=== PATIENT | female | born 2005 | race Caucasian/White ===

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

== ENCOUNTER 2024-06-27 21:02 | Emergency (ER) | payer BC, SELFPAY ==
[2024-06-27 21:03] VITALS: BP 127/85; PULSE 124; RESP 18; TEMP 36.8; O2SAT 98; BMI 30.8
--- NOTE | 2024-06-27 21:22 | ED.VIS.DENTA ---
HPI History of Present Illness Chief Complaint: Dental Detail of Chief Complaint: Dental pain and facial swelling over the right maxillary region Informant: patient and family Onset/Context/Timing Onset: Today Context: Sudden Onset Quality: Tooth #30, pain Current Severity: Mild Maximum Severity: Moderate Worsened by: Chewing Associated Symptoms Assocated Symptom - Dental: face swelling; Negative for fever, jaw swelling, cold sensitivity or hot sensitivity Narrative Narrative: Patient is a 19-year-old female. She has no history of rheumatic fever, heart murmur, SBE or mitral valve prolapse. She has no allergies to medication. She denies difficulty opening or closing her mouth. She believes she has a sinus infection. She has been blowing her nose for the past week. She was informed since she has not had symptoms for more than 2 weeks does not have a sinus infection. There is swelling and pain over the right maxillary sinus is all likely due to her dental infection. She has an appointment to follow-up with Jade Schroeder. The triage note was reviewed. Prior similar symptoms: Yes Recent Illness/Hospitalization: Yes (Seen for problems with tooth 30. Apparently the tooth was not completely e) PFSH PFS Medical History no medical history no medical history Home Medications ?Medication ?Instructions ?Recorded ?Last Taken ?Type amoxicillin 400 mg/5 mL oral 800 mg (10 mL) PO Q12H 7 days 09/27/17 Unknown Rx suspension hydrocodone-acetaminophen 5-325mg 1 tab PO Q6H PRN PRN Pain 3 days 06/27/24 Unknown Rx 5mg-325mg #10 TABLETS naproxen 500 mg tablet 500 mg PO BID #14 tabs 06/27/24 Unknown Rx penicillin V potassium 500 mg 500 mg PO 4X/DAY #40 tabs 06/27/24 Unknown Rx tablet Allergy/AdvReac Type Severity Reaction Status Date / Time No Known Allergies Allergy Verified 06/27/24 21:06 Family History no significant family his Surgical History no surgical history no surgical history Social History Smoking Status: Never smoker ROS ROS ED Constitutional Constitutional ED: Denies chills, fever(s), subjective, sweats or weight loss Eyes Eyes: Denies blurry vision or change in vision ENT ENT ED: Reports other Details: Facial swelling and tooth pain. No complaint of opening or closing her mouth completely. Cardiovascular Cardiovascular: Denies chest pain or palpitations Respiratory/Chest Respiratory/Chest: Denies cough, dyspnea or dyspnea on exertion Integumentary Denies rash Neurologic Neurologic: Denies headache(s) EXAM Physical Exam Const Vital Signs: 06/27/24 21:03 Temperature 98.3 F Temperature Source Temporal Pulse Rate 124 H Respiratory Rate 18 Blood Pressure 127/85 H Blood Pressure Mean 99 Pulse Ox 98 Oxygen Delivery Method Room Air Positive well nourished and well developed General Appearance ED: well developed and NAD HEENT HEENT Narrative: Patient has a cavity into the dentin tooth #29. Tooth 30 is eroded to the gumline. There is swelling over the right maxillary region. No tenderness with palpation of the right maxillary sinus or left maxillary sinus. Negative for trauma or tenderness Face and Sinus: Negative for sinuses nontender Mouth ED: Yes oral and palatal mucosa normal, Yes lips normal, Yes tongue normal, Yes salivary gland normal, No mouth trauma and Yes oral and palatal mucosa abnormal Mouth: oral and palatal mucosa normal, lips normal, tongue normal, salivary gland normal, No mouth trauma and oral and palatal mucosa abnormal Teeth and Gingiva: caries and teeth discoloration; Negative for gingiva abnormal Eyes PERRL and EOMs intact bilaterally Neck no lymphadenopathy, supple and no JVD Lymph Lymphatic: no lymphadenopathy noted Resp normal respiratory effort, no retractions and clear to auscultation bilaterally Cardio regular rate, regular rhythm, S1 normal heart sound, S2 normal heart sound and no murmurs Neuro oriented x3 and CN's II-XII intact bilaterally Sensorium / Orientation: alert Psych mental status grossly normal Skin no rashes or lesions noted and no wounds MDM MDM MDM Narrative Medical decision making narrative: Patient with dental carry tooth #29 and significant decay of tooth #30. Patient's findings are consistent with apical abscess. She was treated with NSAID, opiate analgesia and antibiotic. She has no contraindication to NSAIDs. In my opinion no laboratory testing is needed. Vital signs are marked for tachycardia. This may be due to pain. Patient received first dose of medication in the ER. Since there is no sensitivity to cold or hot liquids patient not have pulpitis. Discharge Plan Triage Chief Complaint: Dental ED Provider: Wayne Nice Dx/Rx/DC Orders Clinical Impression: Abscess, apical, Dental caries extending into dentine, Sinus tachycardia Instructions: ED Dental Abscess Prescriptions: New hydrocodone-acetaminophen 5-325 mg tablet 1 tab PO Q6H PRN PRN (Reason: Pain) 3 Days Qty: 10 0RF penicillin V potassium 500 mg tablet 500 mg PO 4X/DAY Qty: 40 0RF naproxen 500 mg tablet 500 mg PO BID Qty: 14 0RF No Action amoxicillin 400 MG/5 ML suspension for reconstitution 800 mg PO Q12H 7 Days 0RF Primary Care Provider: Khalida Osorio Referrals: Khalida Osorio MD [Primary Care Provider] - Dentist,Your [STAFF PHYSICIAN] - Keep Cesar appointment Print Language: Pashto Disposition Disposition: Home, Self Care
[2024-06-27] MEDS: HYDROcodone Bitartrate/Apap 5/325 Tablet PO (21:30)
[2024-06-27] MEDS: Penicillin Vk 250 MG Tablet 500 MG PO (21:30)
[2024-06-27] MEDS: Naproxen 500 MG Tablet PO (21:31)
[2024-06-27 21:42] VITALS: BP 117/87; PULSE 110; RESP 16; TEMP 36.7; O2SAT 98
== END 2024-06-27 21:44 | disposition home or self-care (01) ==
LOC: ED 21:43
PROVIDERS: Emergency Provider Emergency Medicine; PCP Pediatrics; Visit Provider Emergency Medicine
DX: K04.7 Periapical abscess without sinus (principal); K02.9 Dental caries, unspecified; R00.0 Tachycardia, unspecified
CPT/HCPCS: 99282

== ENCOUNTER → 2025-03-04 | Outpatient (CLI) | payer BC, SELFPAY ==
[2025-03-04 12:22] LABS: Hematocrit 40.9 % (37-47); Hemoglobin 14.0 g/dL (12.0-15.0); Immature Granulocytes Count 0.010 X10^3/uL (0.0-0.0); Mean Corp Hgb Conc 34.2 g/dL (32-36); Mean Corpuscular Volume 88.9 fL (81-99); Mean Platelet Vol. 10.3 fl (6.2-12.0); NRBC Flagged by Analyzer 0 % (0-5); Platelet Count 254 K/mm3 (150-450); RBC Distribution Width CV 11.8 % (11.6-14.6); RBC Distribution Width SD 37.6 fl (35.1-43.9); Red Blood Count 4.60 M/mm3 (4.2-5.4); White Blood Count 5.2 K/mm3 (4.4-11.0)
[2025-03-04 14:36] LABS: HIV Nonreactive (Nonreactive); Hepatitis B Surface Antigen Nonreactive (Nonreactive); Hepatitis C Antibody Nonreactive (Nonreactive); Syphilis Antibodies Nonreactive (Nonreactive)
[2025-03-05 21:07] LABS: Chlamydia By Nucleic Acid AMP Negative (Negative); Gonococcus By Nucleic Acid AMP Negative (Negative)
== END | disposition home or self-care (01) ==
LOC: BWCLAB 11:15
PROVIDERS: Obstetrics & Gynecology; PCP Pediatrics; Visit Provider Obstetrics & Gynecology
DX: Z34.01 Encounter for supervision of normal first pregnancy, first trimester (principal); Z12.4 Encounter for screening for malignant neoplasm of cervix
CPT/HCPCS: 36415; 85025; 86703; 86762; 86780; 86803; 86850; 86900; 86901; 87077; 87086; 87088; 87186; 87340; 87491; 87591; 88175; G0145

== ENCOUNTER → 2025-04-30 | Outpatient (CLI) | payer BC, SELFPAY | END | disposition home or self-care (01) | LOC: LABSPEC 11:03 | PROVIDERS: PCP Pediatrics; Visit Provider Obstetrics & Gynecology | DX: Z34.90 Encounter for supervision of normal pregnancy, unspecified, unspecified trimester (principal) | CPT/HCPCS: 87086 ==

== ENCOUNTER → 2025-06-21 | Outpatient (CLI) | payer BC, SELFPAY ==
[2025-06-21 14:06] LABS: Hematocrit 34.7 % (37-47); Hemoglobin 11.6 g/dL (12.0-15.0); Immature Granulocytes Count 0.020 X10^3/uL (0.0-0.0); Mean Corp Hgb Conc 33.4 g/dL (32-36); Mean Corpuscular Volume 93.0 fL (81-99); Mean Platelet Vol. 10.2 fl (6.2-12.0); NRBC Flagged by Analyzer 0 % (0-5); Platelet Count 223 K/mm3 (150-450); RBC Distribution Width CV 12.3 % (11.6-14.6); RBC Distribution Width SD 42.4 fl (35.1-43.9); Red Blood Count 3.73 M/mm3 (4.2-5.4); White Blood Count 5.7 K/mm3 (4.4-11.0)
[2025-06-21 15:05] LABS: Glucose Challenge Gest 1H 50g 105 mg/dL (70-140); HIV Nonreactive (Nonreactive); Syphilis Antibodies Nonreactive (Nonreactive)
--- OUTSIDE RECORDS SUMMARY | 2025-06-21 15:28 | XMS RPT_ITS | CCD ---
Author Organization [facility] CliniSywy Care Team Providers Care Legal Billing Coordinator Name Role Phone Jo PALUMBO, José Miguel Primary Care Provider Jo PALUMBO, Dr. Gaxiola Primary Care Provider Jo PALUMBO, Dr. Gaxiola Referring Provider Jade PALUMBO, Dr. Waggoner Attending Provider Dr. Delaney Cordova DO Attending Provider Jo PALUMBO, Dr. Gaxiola Primary Care Physician Dr. Rosaline Hansen MD Attending Physician Dr. Delaney Cordova DO Attending Physician Mary Ellen Toro CNM Attending Physician [phone] YANY GUPTA Attending Unavailable DELANEY JUAREZ Referring Unavailab le JO, JOSÉ MIGUEL M Primary Care Unavailable JO, JOSÉ MIGUEL M Primary Care Unavailable YANY GUPTA Attending Unavailable DELANEY JUAREZ Referring Unavailab zena Osorio MD, Dr. Gaxiola Primary Care Physician Jo PALUMBO, Dr. Gaxiola Referring Provider Dr. Rosaline Hansen MD Attending Physician Dr. Delaney Cordova DO Attending Physician Mary Ellen Toro CNM Attending Physician [phone] Nice Attending Unavailable Jo, José Miguel Primary Care Unavailable Jo, José Miguel Referring Unavailable Jo, José Miguel Primary Care Unavailable Delaney Cordova Attending Unavailabl e Jo, José Miguel Referring Unavailable Mary Ellen Toro Attending Unavailable Jo, José Miguel Primary Care Unavailable Rosaline Hansen Attending Unavailable Jo, José Miguel Primary Care Unavailable Jo, José Miguel Referring Unavailable Jo, José Miguel Referring Unavailable Jo, José Miguel Primary Care Unavailable Vande Delaney Moreno Attending Unavailabl e Rosaline Hansen Attending Unavailable Jo, José Miguel Referring Unavailable Jo, José Miguel Primary Care Unavailable Vande Delaney Moreno Attending Unavailabl e Jo, José Miguel Referring Unavailable Jo, José Miguel Primary Care Unavailable Jo, José Miguel Primary Care Unavailable Vande Delaney Moreno Attending Unavailabl e Jo, José Miguel Primary Care Unavailable Vande VeldeDelaney Attending Unavailabl e Medications Current Medications Medication Drug Class(es) Dates Sig (Normalized) Sig (Original) benzonatate 100 mg oral capsule (1 source) Non-narcotic Antitussive Start: 06-06-2023 End: 06-21-2023 take 1 capsule by mouth every eight hours as needed for cough and cough benzonatate (TESSALON PERLE) 100 mg capsule Indications: Acute cough Take 1 capsule by mouth every 8 hours as needed for cough for up to 15 days. 30 capsule 0 06/06/2023 06/21/2023 Active Comment on above: Take 1 capsule by [facility] every 8 hours as needed for cough for up to 15 days. docosahexaenoic acid 200 mg oral capsule (7 sources) Start: 02-26-2025 Docosahexaenoic Acid ( Dha) 200 mg capsule Active mg PO February 25, 2025 11:00pm Complies with drug therapy ondansetron 4 mg disintegrating oral tablet (4 sources) Serotonin-3 Receptor Antagonist Start: 03-19-2025 take 1 tablet by mouth every six hours as needed for nausea and vomiting Ondansetron 4 mg tablet,disintegratin g Active 4 mg PO EVERY 6 HOURS as needed for nausea and vomiting 04 11March 18, 2025 11:00pm Complies with drug therapy Completed/Discontinued Medications Medication Drug Class(es) Dates Sig (Normalized) Sig (Original) acetaminophen 325 mg / HYDROcodone bitartrate 5 mg oral tablet (7 sources) Opioid Agonist Start: 06-27-2024 End: 02-26-2025 Hydrocodone-Acetami nophen 5-325 mg tablet Discontinued 1 {tbl} PO EVERY 6 HOURS NEEDED as needed for Pain 10 3 0 June 27, 2024 February 26, 2025 9:59am Periapical abscess Dental caries extending into dentin Sinus tachycardia Periapical abscess without sinus Dental caries on smooth surface penetrating into dentin Tachycardia, unspecified amoxicillin 80 mg/ml oral suspension (7 sources) Penicillin-class Antibacterial Start: 09-27-2017 End: 02-26-2025 take 800 mg by mouth every twelve hours Amoxicillin 400 MG/5 ML suspension for reconstitution Discontinued 800 mg PO Q12H 7 September 27, 2017 12:00am February 26, 2025 9:59am ampicillin 500 mg oral capsule (5 sources) Penicillin-class Antibacterial Start: 03-06-2025 End: 03-11-2025 take 1 capsule by mouth every eight hours Ampicillin 500 mg capsule Discontinued 500 mg PO Q8H 15 5 0 March 05, 2025 11:00pm March 09, 2025 11:00pm March 10, 2025 11:07pm naproxen 500 mg oral tablet (7 sources) Nonsteroidal Anti-inflammatory Drug Start: 06-27-2024 End: 02-26-2025 take 1 tablet by mouth twice daily Naproxen 500 mg tablet Discontinued 500 mg PO TWICE A DAY 14 0 June 27, 2024 12:00am February 26, 2025 9:59am penicillin v potassium 500 mg oral tablet (7 sources) Start: 06-27-2024 End: 02-26-2025 take 1 tablet by mouth four times daily Penicillin V Potassium 500 mg tablet Discontinued 500 mg PO 4 TIMES DAILY 40 0 June 27, 2024 12:00am February 26, 2025 9:59am Problems Active Problems Problem Classification Problem Date Documented Date Episodic/Chronic Cardiac dysrhythmias (7 sources) Sinus tachycardia; Translations: [Tachycardia, unspecified] 07-05-2024 Episodic Developmental disorders (20 sources) Learning difficulties; Translations: [Developmental disorder of scholastic skills, unspecified] Onset: 05-28-2025 02-26-2025 Chronic Comment on above: 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 Rpt culture next visit. E coli. Rpt culture negative Other complications of (1 source) Unspecified infection of urinary tract in , unspecified trimester; Translations: [Unspecified infection of urinary tract in , unspecified trimester] Onset: 05-28-2025 Episodic Other lower respiratory disease (1 source) Cough; Translations: [Acute cough] 06-06-2023 Episodic Other and delivery including normal (20 sources) Normal ; Translations: [Encounter for supervision of normal , unspecified, unspecified trimester] Onset: 03-16-2025 02-26-2025 Episodic Comment on above: , JENIFER 09/20/25, BF: Randolph Discuss genetic/rosario ier testing - undecided elected NIPT with Kiio, low risk, gender male, declined carrier testing Residual codes; unclassified (2 sources) ultrasound scan abnormal; Translations: [Pyelectasis of fetus on ultrasound] 05-09-2025 Episodic Comment on above: growth and follow up at 28 weeks Residual codes; unclassified (1 source) 23 weeks gestation of ; Translations: [23 weeks gestation of ] Onset: 05-28-2025 Episodic Residual codes; unclassified (1 source) 19 weeks gestation of ; Translations: [19 weeks gestation of ] Onset: 04-30-2025 Episodic Residual codes; unclassified (1 source) 15 weeks gestation of ; Translations: [15 weeks gestation of ] Onset: 04-03-2025 Episodic Unclassified (1 source) Maternal care for other (suspected) abnormality and damage, genitourinary anomalies, not applicable or unspecified; Translations: [Maternal care for other (suspected) abnormality and damage, genitourinary anomalies, not applicable or unspecified] Onset: 05-28-2025 Past or Other Problems Problem Classification Problem Date Documented Da te Episodic/Chronic Disorders of teeth and jaw (15 sources) Periapical abscess; Translations: [Periapical abscess without sinus] Onset: 03-05-2025 07-05-2024 Episodic Results Test Name Value Interpretation Reference Range Facility Laboratory - Chemistry and C hemistry - challengeOrdered By: Delaney Moreno on 05-28-2025 Glucose Ql (U) Negative [facility] - UrinalysisOrder ed By: Delaney Moreno on 05-28-2025 Protein Ql (U) Negative [facility] Liability Claims Adjuster Office Visit Reporton 05-28-2025 Liability Claims Adjuster Office Visit Report [facility] [address], [address] [place] [address] OFFICE VISIT Date of Service: 05/28/25 MR#: [id number] Acct: [id number] Name: DANIEL HODGSON Rep #: [id number] : 2005 Provider: Dr. Delaney Rosa DO Age/Sex: 20/F [place] [facility] [place]: Signed Intake Vital Signs 03/04/25 10:34 04/30/25 09:41 05/28/25 11:26 05/28/25 11:27 Height 5 ft 1 in 5 ft 1 in 5 ft 1 in 5 ft 1 in Weight: 141 lb 9 oz BMI 26.7 BP 117/75 Intake Visit Reasons: 23w 4d ob Site Promotion Agent Required: No Is patient in pain?: No Allergies No Known Allergies Allergy (Verified 05/28/25 11:26) Medications ???Medication ???Instructions ???Recorded ???Confirmed ???Type docosahexaenoic acid 200 mg mg PO 02/26/25 05/28/25 History capsule ( DHA) ondansetron 4 mg disintegrating 4 mg PO Q6H PRN nausea and 5 05/28/25 Rx tablet vomiting #30 tabs Last Menstrual Period: 12/14/24 Zika: Zika virus screening: Negative : No PFSH PFSH Family History Sister Queta's disease Thyroid disorder Grandfather Diabetes Heart disease Grandmother Diabetes Congestive heart failure Grandfather Diabetes Grandmother Lung cancer Liver cancer Brain cancer Aunt Migraines Mother Asthma Migraines Aunt Multiple sclerosis Social History adopted: No household members: family and other details: Mom Dad, Grandfather, Sister number of children: 0 current occupational status: unemployed current occupational exposures/hazards: No pets and animals: Yes pets and animals: cat(s) and dog(s) history of recent travel: No sexually active: Yes Smoking Status: Never smoker second hand exposure: Yes (BF's family smokes) alcohol intake: never substance use type: does not use well-balanced diet: about half the time caffeine: No eating out: 1-3 times/week during the past year weight has: remained stable what type of physical activity do you participate in: none mey/buddhist: None seatbelt use: always do you feel safe at home: Yes additional social history: BF: Trevous - unemployed History 0 Elective abortions 0 Hx Para Spontaneous abortions 0 Hx # Term Pregnancies Ectopic pregnancies Hx # Pregnancies Multiple births # of living children HPI 23w 4d ob Details: DANIEL HODGSON is a 20 year old who presents for routine OB visit. OB Visit JENIFER Calculator Estimated Delivery Date Method Current WG Current Estimate 09/20/25 LMP (Certain) 23w 4d Other Estimates 09/17/25 Ultrasound #1 24w 0d Expected Delivery Route/Plan Labor Preferences- CB/BF classes: discussed - labor support person: [] labor intervention preferences: [] pain management options preferred: [] cut cord/dad catch: [] : [] PP control planned: [] discussed possible routes of delivery and associated risks: [] special requests: [] Specific Issue/Plans Covid status: unvaccinated Flu vaccine: unvaccinated Tdap vaccine: [] Rhogam: [] LARC form signed: [] Problem list reviewed and updated with the most current plan of care details and appropriate orders placed. Relevant counseling for the gestational age provided. Continue routine care and follow up unless otherwise noted in visit notes/problem list details Initial Weight: 139 lb Date -???-???-???-???-?? ?-???-???-???-???-? ??-???-???- EGA Weight BP Urine Prot -???-???-???-???-?? ?-???-???-???-???-? ??-???-???- Glucose FHR FuHt Pres Dilation -???-???-???-???-?? ?-???-???-???-???-? ??-???-???- Effaced St Visit Note 03/04/25 -???-???-???-???-?? ?-???-???-???-???-? ??-???-???- 11w 3d 139 lb (+0 oz) 120/80 -???-???-???-???-?? ?-???-???-???-???-? ??-???-???- -???-???-???-???-?? ?-???-???-???-???-? ??-???-???- JV- CRL cons itent with LMP, [facility]. desires NIPT without carrier testing. 04/03/25 -???-???-???-???-?? ?-???-???-???-???-? ??-???-???- 15w 5d 142 lb 9 oz (+3 lb 9 oz) 104/55 -???-???-???-???-?? ?-???-???-???-???-? ??-???-???- 144 -???-???-???-???-?? ?-???-???-???-???-? ??-???-???- JV- low risk s NIPT bo, Gareth) JV- low risks NIPT bo, Gareth) Her mom here with her is concerned about her boyfriend's parents smoking weed around her. we discussed keeping a safe distance in a ventilated area. 04/30/25 -???-???-???-???-?? ?-???-???-???-???-? ??-???-???- 19w 4d 141 lb 7 oz (+2 lb 7 oz) 118/76 -???-???-???-???-?? ?-???-???-???-???-? ??-???-???- 145 -???-???-???-???-?? ?-???-???-???-???-? ??-???-???- KW- no vb/lo f. some flutters. has anatomy US scheduled. 05/28/25 -???-???-???-???-?? ?-???-???-???- (more content not included)... Normal [facility] Urine Cultureon 05-01-2025 URC Culture exhibits no growth. Normal [facility] Comment on above: Performed By: #### M 100.2200 #### [facility] [address] [place], [place], [address] Urine cultureOrdered By: Zabrina Moreno on 05-01-2025 Bacteria identified Cx Nom (U) Culture exhibits no growth. [facility] Liability Claims Adjuster Office Visit Reporton 04-30-2025 Liability Claims Adjuster Office Visit Report [facility] [address], [address] [place] [address] OFFICE VISIT Date of Service: 04/30/25 MR#: [id number] Acct: [id number] Name: DANIEL HODGSON Rep #: [id number] : 2005 Provider: CAROLE Nixon ams Age/Sex: 20/F [place] [facility] [place] Status: Signed Intake Vital Signs 06/27/24 21:03 04/03/25 16:01 04/30/25 09:41 Height 5 ft 1 in 5 ft 1 in 5 ft 1 in Weight: 141 lb 7 oz BMI 26.7 BP 118/76 Intake Visit Reasons: 19wk OB Chief Complaint: 19wk OB Site Promotion Agent Required: No Is patient in pain?: No Allergies No Known Allergies Allergy (Verified 04/30/25 09:38) Medications ???Medication ???Instructions ???Recorded ???Confirmed ???Type docosahexaenoic acid 200 mg mg PO 02/26/25 04/30/25 History capsule ( DHA) ondansetron 4 mg disintegrating 4 mg PO Q6H PRN nausea and 5 04/30/25 Rx tablet vomiting #30 tabs Last Menstrual Period: 12/14/24 : No PFSH PFSH Family History Sister Queta's disease Thyroid disorder Grandfather Diabetes Heart disease Grandmother Diabetes Congestive heart failure Grandfather Diabetes Grandmother Lung cancer Liver cancer Brain cancer Aunt Migraines Mother Asthma Migraines Aunt Multiple sclerosis Social History adopted: No household members: family and other details: Mom Dad, Grandfather, Sister number of children: 0 current occupational status: unemployed current occupational exposures/hazards: No pets and animals: Yes pets and animals: cat(s) and dog(s) history of recent travel: No sexually active: Yes Smoking Status: Never smoker second hand exposure: Yes (BF's family smokes) alcohol intake: never substance use type: does not use well-balanced diet: about half the time caffeine: No eating out: 1-3 times/week during the past year weight has: remained stable what type of physical activity do you participate in: none mey/buddhist: None seatbelt use: always do you feel safe at home: Yes additional social history: BF: Trevous - unemployed History 0 Elective abortions 0 Hx Para Spontaneous abortions 0 Hx # Term Pregnancies Ectopic pregnancies Hx # Pregnancies Multiple births # of living children HPI 19wk OB Details: DANIEL HODGSON is a 20 year old who presents for routine OB visit. OB Visit JENIFER Calculator Estimated Delivery Date Method Current WG Current Estimate 09/20/25 LMP (Certain) 19w 4d Other Estimates 09/17/25 Ultrasound #1 20w 0d Expected Delivery Route/Plan Labor Preferences- CB/BF classes: discussed - labor support person: [] labor intervention preferences: [] pain management options preferred: [] cut cord/dad catch: [] : [] PP control planned: [] discussed possible routes of delivery and associated risks: [] special requests: [] Specific Issue/Plans Covid status: unvaccinated Flu vaccine: unvaccinated Tdap vaccine: [] Rhogam: [] LARC form signed: [] Problem list reviewed and updated with the most current plan of care details and appropriate orders placed. Relevant counseling for the gestational age provided. Continue routine care and follow up unless otherwise noted in visit notes/problem list details Initial Weight: 139 lb Date -???-???-???-???-?? ?-???-???-???-???-? ??-???-???- EGA Weight BP Urine Prot -???-???-???-???-?? ?-???-???-???-???-? ??-???-???- Glucose FHR FuHt Pres Dilation -???-???-???-???-?? ?-???-???-???-???-? ??-???-???- Effaced St Visit Note 03/04/25 -???-???-???-???-?? ?-???-???-???-???-? ??-???-???- 11w 3d 139 lb (+0 oz) 120/80 -???-???-???-???-?? ?-???-???-???-???-? ??-???-???- -???-???-???-???-?? ?-???-???-???-???-? ??-???-???- JV- CRL cons itent with LMP, had early us with care center. desires NIPT without carrier testing. 04/03/25 -???-???-???-???-?? ?-???-???-???-???-? ??-???-???- 15w 5d 142 lb 9 oz (+3 lb 9 oz) 104/55 -???-???-???-???-?? ?-???-???-???-???-? ??-???-???- 144 -???-???-???-???-?? ?-???-???-???-???-? ??-???-???- JV- low risk s NIPT boy, Gareth) JV- low risks NIPT boy, Gareth) Her mom here with her is concerned about her boyfriend's parents smoking weed around her. we discussed keeping a safe distance in a ventilated area. 04/30/25 -???-???-???-???-?? ?-???-???-???-???-? ??-???-???- 19w 4d 141 lb 7 oz (+2 lb 7 oz) 118/76 -???-???-???-???-?? ?-???-???-???-???-? ??-???-???- 145 -???-???-???-???-?? ?-???-???-???-???-? ??-???-???- KW- no vb/lo f. some flutters. has anatomy US scheduled. ACOG First Trimester First Trimester: Desire for , Alcohol, Tobacco Cessation, Illicit/Rec (more content not included)... Normal [facility] Urine cultureOrdered By: Zabrina Moreno on 04-30-2025 Bacteria identified Cx Nom (U) Culture exhibits no growth. [facility] Liability Claims Adjuster Office Visit Reporton 04-03-2025 Liability Claims Adjuster Office Visit Report [facility], [address] [place] [address] OFFICE VISIT Date of Service: 04/03/25 MR#: [id number] Acct: [id number] Name: DANIEL HODGSON Rep #: [id number] : 2005 Provider: Dr. Delaney Rosa DO Age/Sex: 20/F Location: [facility] [place] Status: Signed Intake Vital Signs 06/27/24 21:03 03/04/25 10:34 04/03/25 16:01 Height 5 ft 1 in 5 ft 1 in 5 ft 1 in Weight: 142 lb 9 oz BMI 26.9 BP 104/55 L Intake Visit Reasons: 15wk OB Site Promotion Agent Required: No Is patient in pain?: No Allergies No Known Allergies Allergy (Verified 04/03/25 15:59) Medications ???Medication ???Instructions ???Recorded ???Confirmed ???Type docosahexaenoic acid 200 mg mg PO 02/26/25 04/03/25 History capsule ( DHA) ondansetron 4 mg disintegrating 4 mg PO Q6H PRN nausea and 5 04/03/25 Rx tablet vomiting #30 tabs Last Menstrual Period: 12/14/24 Zika: Zika virus screening: Negative : No PFSH PFSH Family History Sister Queta's disease Thyroid disorder Grandfather Diabetes Heart disease Grandmother Diabetes Congestive heart failure Grandfather Diabetes Grandmother Lung cancer Liver cancer Brain cancer Aunt Migraines Mother Asthma Migraines Aunt Multiple sclerosis Social History adopted: No household members: family and other details: Mom Dad, Grandfather, Sister number of children: 0 current occupational status: unemployed current occupational exposures/hazards: No pets and animals: Yes pets and animals: cat(s) and dog(s) history of recent travel: No sexually active: Yes Smoking Status: Never smoker second hand exposure: Yes (BF's family smokes) alcohol intake: never substance use type: does not use well-balanced diet: about half the time caffeine: No eating out: 1-3 times/week during the past year weight has: remained stable what type of physical activity do you participate in: none mey/buddhist: None seatbelt use: always do you feel safe at home: Yes additional social history: BF: Trevous - unemployed History 0 Elective abortions 0 Hx Para Spontaneous abortions 0 Hx # Term Pregnancies Ectopic pregnancies Hx # Pregnancies Multiple births # of living children HPI 15wk OB Details: DANIEL HODGSON is a 20 year old who presents for routine OB visit. OB Visit JENIFER Calculator Estimated Delivery Date Method Current WG Current Estimate 09/20/25 LMP (Certain) 15w 5d Other Estimates 09/17/25 Ultrasound #1 16w 1d Expected Delivery Route/Plan Labor Preferences- CB/BF classes: discussed - labor support person: [] labor intervention preferences: [] pain management options preferred: [] cut cord/dad catch: [] : [] PP control planned: [] discussed possible routes of delivery and associated risks: [] special requests: [] Specific Issue/Plans Covid status: unvaccinated Flu vaccine: unvaccinated Tdap vaccine: [] Rhogam: [] LARC form signed: [] Problem list reviewed and updated with the most current plan of care details and appropriate orders placed. Relevant counseling for the gestational age provided. Continue routine care and follow up unless otherwise noted in visit notes/problem list details Initial Weight: 139 lb Date -???-???-???-???-?? ?-???-???-???-???-? ??-???-???- EGA Weight BP Urine Prot -???-???-???-???-?? ?-???-???-???-???-? ??-???-???- Glucose FHR FuHt Pres Dilation -???-???-???-???-?? ?-???-???-???-???-? ??-???-???- Effaced St Visit Note 03/04/25 -???-???-???-???-?? ?-???-???-???-???-? ??-???-???- 11w 3d 139 lb (+0 oz) 120/80 -???-???-???-???-?? ?-???-???-???-???-? ??-???-???- -???-???-???-???-?? ?-???-???-???-???-? ??-???-???- JV- CRL cons itent with LMP, [facility]. desires NIPT without carrier testing. 04/03/25 -???-???-???-???-?? ?-???-???-???-???-? ??-???-???- 15w 5d 142 lb 9 oz (+3 lb 9 oz) 104/55 -???-???-???-???-?? ?-???-???-???-???-? ??-???-???- 144 -???-???-???-???-?? ?-???-???-???-???-? ??-???-???- JV- low risk s NIPT boy, Gareth) JV- low risks NIPT boy, Gareth) Her mom here with her is concerned about her boyfriend's parents smoking weed around her. we discussed keeping a safe distance in a ventilated area. ACOG First Trimester First Trimester: Desire for , Alcohol, Tobacco Cessation, Illicit/Recreationa l Drug/Substance Use, Intimate Partner Violence, Barriers to care, Unstable Housing, Communication Barriers, Environmental/Work Hazards, Anticipated Course of Care, Toxoplasmosis Precations, Use of Any medications, Sexual (more content not included)... Normal [facility] PAP I-G w/rfx hrHPV-Aptimaon 03-07-2025 ADEQ Comment Normal . [facility] Comment on above: Order Comment: Speci men Comment: [id number] Specimen Comment: No. of containers..01 ThinPrep Vial Result Comment: Sati sfactory for evaluation. No endocervical component is identified. An endocervical component is not commonly seen in the patient. Performed By: #### L 7000.1800, L7400.0353 #### [facility] [address] [place], [address] COMM . Normal . [facility] Comment on above: Order Comment: Speci men Comment: [id number] Specimen Comment: No. of containers..01 ThinPrep Vial Performed By: #### L 7000.1800, L7400.0353 #### [facility] [address] [place], [address] COMMENT Comment Normal . [facility] Comment on above: Order Comment: Speci men Comment: [id number] Specimen Comment: No. of containers..01 ThinPrep Vial Result Comment: This liquid based ThinPrep(R) pap test was screened with the use of an image guided system. Performed By: #### L 7000.1800, L7400.0353 #### [facility] [address] [place], [address] DIAG Comment Normal . [facility] Comment on above: Order Comment: Speci men Comment: [id number] Specimen Comment: No. of containers..01 ThinPrep Vial Result Comment: NEGA TIVE FOR INTRAEPITHELIAL LESION OR MALIGNANCY. Performed By: #### L 7000.1800, L7400.0353 #### [facility] [address] [place], [address] HPV RFLX Comment Normal . [facility] Comment on above: Order Comment: Speci men Comment: [id number] Specimen Comment: No. of containers..01 ThinPrep Vial Result Comment: The HPV DNA reflex criteria were not met with this specimen result therefore, no HPV testing was performed. Performed at: [facility] [employer] [address] [place] [address], [place], [place] [id number] Latrine Cleaner: Mynor Steele MD, Phone: [phone] Performed at: [address] [id number] Latrine Cleaner: Milagros Roque MD, Phone: [phone] Performed By: #### L 7000.1800, L7400.0353 #### [facility] [address] [place], [place], [id number] PAPSMR Comment Normal . [facility] Comment on above: Order Comment: Speci men Comment: [id number] Specimen Comment: No. of containers..01 ThinPrep Vial Result Comment: The Pap smear is a screening test designed to aid in the detection of premalignant and malignant conditions of the uterine cervix. It is not a diagnostic procedure and should not be used as the sole means of detecting cervical cancer. Both false-positive and false-negative reports do occur. Performed By: #### L 7000.1800, L7400.0353 #### [facility] [address] [place], [place], [id number] PERFORM Comment Normal . [facility] Comment on above: Order Comment: Speci men Comment: [id number] Specimen Comment: No. of containers..01 ThinPrep Vial Result Comment: Kate Roldan, Imaging Analyst (ASCP) Performed By: #### L 7000.1800, L7400.0353 #### [facility] [address] [place], [place], [id number] Urine Cultureon 03-06-2025 URC Escherichia coli [place] Count >100,000 Escherichia coli: REACTION Ampicillin Islt CLEMENCIA 8 Ampicillin+Sulbac Islt CLEMENCIA <=2 S Cefepime Islt CLEMENCIA <=0.12 S cefTRIAXone Islt CLEMENCIA <=0.25 S Ciprofloxacin Islt CLEMENCIA <=0.06 S B-Lactamase Extended Susc Islt NEG Gentamicin Islt CLEMENCIA <=1 S levoFLOXacin Islt CLEMENCIA <=0.12 S Meropenem Islt CLEMENCIA <=0.25 S Nitrofurantoin Islt CLEMENCIA <=16 S Pip+Tazo Islt CLEMENCIA <=4 S TMP SMX Islt CLEMENCIA <=20 S Normal [facility] Comment on above: Performed By: #### M 100.2200, L509.4006, L3890.6006, L3890.6102, L100.0100, BTS, L509.8002, L3890.6301 ####[facility] [address] [place], [address] Chlamydia/GC RICK aptimaon CHLAMY,NUC ACID Negative Normal Negative [facility] Comment on above: Performed By: #### L 7000.1800, L7400.0353 #### [facility] [address] [place], [place], [id number] GC BY NUC ACID Negative Normal Negative [facility] Comment on above: Result Comment: Perf ormed at: =G - [facility] [address] [id number] Latrine Cleaner: Milagros Roque MD, Phone: [phone] Performed By: #### L 7000.1800, L7400.0353 #### [facility] [address] [place], [place], [id number] Absolute lymphocyte countOrd ered By: Rosaline Hansen on 03-04-2025 Lymphocytes Auto (Unsp spec) [#/Vol] 1.31 10*3/uL 0.83-4.51 [facility] Absolute neutrophil countOrd ered By: Rosaline Hansen on 03-04-2025 Neutrophils (Bld) [#/Vol] 3.6 10*3/uL 2.0-7.7 [facility] Automated lymphocyte count a s percentage of total leukocytesOrdered By: Rosaline Hansen on 03-04-2025 Lymphocytes/100 WBC Auto (Unsp spec) 25.2 % 19-41 [facility] Basophil percentageOrdered B y: Rosaline Hansen on 03-04-2025 Basophils/100 WBC (Bld) 0.2 % 0-1 [facility] CBC W/Diff, Automatedon 02-06 Absolute Lymph 1.31 X10 3/uL Normal 0.83-4.51 [facility] Comment on above: Performed By: #### M 100.2200, L509.4006, L3890.6006, L3890.6102, L100.0100, BTS, L509.8002, L3890.6301 #### [facility] [address] [place], [address] Absolute Neut 3.6 X10 3/uL Normal 2.0-7.7 [facility] Comment on above: Performed By: #### M 100.2200, L509.4006, L3890.6006, L3890.6102, L100.0100, BTS, L509.8002, L3890.6301 #### [facility] [address] [place], [address] Basophils/100 WBC (Bld) 0.2 % Normal 0-1 [facility] Comment on above: Performed By: #### M 100.2200, L509.4006, L3890.6006, L3890.6102, L100.0100, BTS, L509.8002, L3890.6301 #### [facility] [address] [place], [address] Eosinophils/100 WBC (Bld) 1.0 % Normal 0-5 [facility] Comment on above: Performed By: #### M 100.2200, L509.4006, L3890.6006, L3890.6102, L100.0100, BTS, L509.8002, L3890.6301 #### [facility] [address] [place], [address] Erythrocyte distribution width (RBC) [Ratio] 11.8 % Normal 11.6-14.6 [facility] Comment on above: Performed By: #### M 100.2200, L509.4006, L3890.6006, L3890.6102, L100.0100, BTS, L509.8002, L3890.6301 #### [facility] [address] [place], [address] Hematocrit (Bld) [Volume fraction] 40.9 % Normal 37-47 [facility] Comment on above: Performed By: #### M 100.2200, L509.4006, L3890.6006, L3890.6102, L100.0100, BTS, L509.8002, L3890.6301 #### [facility] [address] [place], [address] Hemoglobin (Bld) [Mass/Vol] 14.0 g/dL Normal 12.0-15.0 [facility] Comment on above: Performed By: #### M 100.2200, L509.4006, L3890.6006, L3890.6102, L100.0100, BTS, L509.8002, L3890.6301 #### [facility] [address] [place], [address] IG% 0.200 Normal 0.0-0.9 [facility] Comment on above: Result Comment: IG% - Immature Granulocytes (promyelocytes, myelocytes and metamyelocytes) > 1% indicates that a LEFT SHIFT is Present. Performed By: #### M 100.2200, L509.4006, L3890.6006, L3890.6102, L100.0100, BTS, L509.8002, L3890.6301 #### [facility] [address] [place], [address] Lymphocytes/100 WBC (Bld) 25.2 % Normal 19-41 [facility] Comment on above: Performed By: #### M 100.2200, L509.4006, L3890.6006, L3890.6102, L100.0100, BTS, L509.8002, L3890.6301 #### [facility] [address] [place], [address] MCH (RBC) [Entitic mass] 30.4 pg Normal 27.0-32.0 [facility] Comment on above: Performed By: #### M 100.2200, L509.4006, L3890.6006, L3890.6102, L100.0100, BTS, L509.8002, L3890.6301 #### [facility] [address] [place], [address] MCHC (RBC) [Mass/Vol] 34.2 g/dL Normal 32-36 [facility] Comment on above: Performed By: #### M 100.2200, L509.4006, L3890.6006, L3890.6102, L100.0100, BTS, L509.8002, L3890.6301 #### [facility] [address] [place], [address] MCV (RBC) [Entitic vol] 88.9 fL Normal 81-99 [facility] Comment on above: Performed By: #### M 100.2200, L509.4006, L3890.6006, L3890.6102, L100.0100, BTS, L509.8002, L3890.6301 #### [facility] [address] [place], [address] Monocytes/100 WBC (Bld) 4.8 % Normal 0-10 [facility] Comment on above: Performed By: #### M 100.2200, L509.4006, L3890.6006, L3890.6102, L100.0100, BTS, L509.8002, L3890.6301 #### [facility] [address] [place], [address] Neutrophils/100 WBC (Bld) 68.6 % Normal 47-70 [facility] Comment on above: Performed By: #### M 100.2200, L509.4006, L3890.6006, L3890.6102, L100.0100, BTS, L509.8002, L3890.6301 #### [facility] [address] [place], [address] Nucleated RBC (Bld) [#/Vol] 0 10*3/uL Normal 0-5 [facility] Comment on above: Performed By: #### M 100.2200, L509.4006, L3890.6006, L3890.6102, L100.0100, BTS, L509.8002, L3890.6301 #### [facility] [address] [place], [address] Platelet mean volume (Bld) [Entitic vol] 10.3 fL Normal 6.2-12.0 [facility] Comment on above: Performed By: #### M 100.2200, L509.4006, L3890.6006, L3890.6102, L100.0100, BTS, L509.8002, L3890.6301 #### [facility] [address] [place], [address] Platelets (Bld) [#/Vol] 254 10*3/uL Normal 150-450 [facility] Comment on above: Performed By: #### M 100.2200, L509.4006, L3890.6006, L3890.6102, L100.0100, BTS, L509.8002, L3890.6301 #### [facility] [address] [place], [address] RBC (Bld) [#/Vol] 4.60 10*6/uL Normal 4.2-5.4 [facility] Comment on above: Performed By: #### M 100.2200, L509.4006, L3890.6006, L3890.6102, L100.0100, BTS, L509.8002, L3890.6301 #### [facility] [address] [place], [address] RDW SD 37.6 fl Normal 35.1-43.9 [facility] Comment on above: Performed By: #### M 100.2200, L509.4006, L3890.6006, L3890.6102, L100.0100, BTS, L509.8002, L3890.6301 #### [facility] [address] [place], [address] WBC (Bld) [#/Vol] 5.2 10*3/uL Normal 4.4-11.0 [facility] Comment on above: Performed By: #### M 100.2200, L509.4006, L3890.6006, L3890.6102, L100.0100, BTS, L509.8002, L3890.6301 #### [facility] [address] [place], [address] Cervical or vagninal specime n microscopic examination by cytology stain (reported asOrdered By: Rosaline Hansen on 03-04-2025 Cytology report Cyto stain Doc (Cvx/Vag) Comment . [facility] Comment on above: The Pap smear is a s creening test designed to aid in thedetection of premalignant and malignant conditions of theuterine cervix. It is not a diagnostic procedure andshould not be used as the sole means of detecting cervicalcancer. Both false-positive and false-negative reports dooccur. Chlamydia trachomatis rRNA d etection by probe and target amplification methodOrdered By: Rosaline Hansen on 03-04-2025 C. trachomatis rRNA RICK+probe Ql (Unsp spec) Negative Negative [facility] Eosinophil percentageOrdered By: Rosaline Hansen on 03-04-2025 Eosinophils/100 WBC (Bld) 1.0 % 0-5 [facility] Erythrocyte distribution wid th ratioOrdered By: Rosaline Hansen on 03-04-2025 Erythrocyte distribution width (RBC) [Ratio] 11.8 % 11.6-14.6 [facility] Erythrocyte distribution wid th standard deviationOrdered By: Rosaline Hansen on 03-04-2025 Erythrocyte distribution width (RBC) [Ratio] 37.6 fl 35.1-43.9 [facility] HIVon 03-04-2025 HIV Non-Reactive Normal Nonreactive [facility] Comment on above: Result Comment: Non- Reactive Reactive Repeatedly reactive samples must be confirmed according to CDC recommended confirmatory algorithms. The subresults for either HIVAG or AHIV can be used as an aid in the selection of the confirmation algorithm for reactive samples. Send out specimens with Reactive results to [facility] for confirmation. Order the HIV antibody detection and differentiation: lc#[id number] Performed By: #### M 100.2200, L509.4006, L3890.6006, L3890.6102, L100.0100, BTS, L509.8002, L3890.6301 ####[facility] [address] [place], [place], [address] Hematocrit Auto (Bld) [Volum e fraction]Ordered By: Rosaline Hansen on 03-04-2025 Hematocrit (Bld) [Volume fraction] 40.9 % 37-47 [facility] Hemoglobin measurementOrdere d By: Rosaline Davidsonhima on 03-04-2025 Hemoglobin (Bld) [Mass/Vol] 14.0 g/dL 12.0-15.0 [facility] Hepatitis C Antibodyon 03-04 Hepatitis C Ab Non-Reactive Normal Nonreactive [facility] Comment on above: Result Comment: Reac tive: Presumptive evidence of antibodies to HCV. Follow CDC recommendations for supplemental testing. Non-Reactive: Antibodies to HCV were not detected; does not exclude the possibility of exposure to HCV Reactive Results are presumptive evidence of antibodies to HCV. Follow CDC recommendations for supplemental testing. Order confirmation testing: HCV Quant by PCR testing - HCVPCR lc#[id number] Non Reactive: < 0.8 Equivocal: >/= 0.8 to < 1.0 Reactive: >/= 1.0 The CDC requires that a reactive/equivocal HCV antibody result be sent out for confirmation. HCV Quant by PCR testing. Performed By: #### M 100.2200, L509.4006, L3890.6006, L3890.6102, L100.0100, BTS, L509.8002, L3890.6301 ####[facility] [address] [place], [place], [id number] Immature granulocytes/100 WB C Auto (Bld)Ordered By: Rosaline Hansen on 03-04-2025 Immature granulocytes/100 WBC (Bld) 0.200 % 0.0-0.9 [facility] Comment on above: IG% - Immature Granu locytes (promyelocytes, myelocytes and metamyelocytes) > 1% indicates that a LEFT SHIFT is Present. L3890.6102on 03-04-2025 HEP B Surf Ag Non-Reactive Normal Nonreactive [facility] Comment on above: Result Comment: Reac tive: Presumptive evidence of HBV. Repeatedly reactive samples must be confirmed using a neutralization test ([employer] HBsAg Confirmatory Test) Non-Reactive: HBsAg not detected; does not exclude the possibility of exposure to HBV Performed By: #### M 100.2200, L509.4006, L3890.6006, L3890.6102, L100.0100, BTS, L509.8002, L3890.6301 ####[facility] [address] [place], [address] L509.4006on 03-04-2025 Rubella IgG REAC Normal Nonreactive [facility] Comment on above: Result Comment: Anti body Result: Interpretation Non-Reactive: Non-Immune Reactive: Immune The following results were obtained with the [employer] Rubella IgG assay. Results from assays of other manufacturers cannot be used interchangeably. Performed By: #### M 100.2200, L509.4006, L3890.6006, L3890.6102, L100.0100, BTS, L509.8002, L3890.6301 #### [facility] [address] [place], [place], [id number] Laboratory - CytologyOrdered By: Rosaline Hansen on 03-04-2025 Imaging Analyst Cyto stain Nom (Cvx/Vag) [ID] Comment . [facility] Comment on above: Kate Roldan, Cyto logist (ASCP) Laboratory - Microbiology an d Antimicrobial susceptibilityOrdered By: Rosaline Hansen on 03-04-2025 HBV surface Ag Ql (S) Non-Reactive Nonreactive [facility] Comment on above: Reactive: Presumptiv e evidence of HBV. Repeatedly reactive samples must be confirmed using a neutralization test ([employer] HBsAg Confirmatory Test)Non-Reactive: HBsAg not detected; does not exclude the possibility of exposure to HBV Laboratory - Miscellaneous t estsOrdered By: Rosaline Hansen on 03-04-2025 Service comment (Unsp spec) [Interp] . . [facility] MCV (mean corpuscular volume ) determinationOrdered By: Rsoaline Hansen on 03-04-2025 MCV (RBC) [Entitic vol] 88.9 fL 81-99 [facility] Mean corpuscular hemoglobin (MCH) determinationOrdered By: Rosaline Hansen on 03-04-2025 MCH (RBC) [Entitic mass] 30.4 pg 27.0-32.0 [facility] Mean corpuscular hemoglobin concentration (MCHC) determinationOrdered By: Rosaline Hansen on 03-04-2025 MCHC (RBC) [Mass/Vol] 34.2 g/dL 32-36 [facility] Mean platelet volume determi nationOrdered By: Rosaline Hansen on 03-04-2025 Platelet mean volume (Bld) [Entitic vol] 10.3 fL 6.2-12.0 [facility] Monocyte percentageOrdered B y: Rosaline Hansen on 03-04-2025 Monocytes/100 WBC (Bld) 4.8 % 0-10 [facility] NATERAon 03-04-2025 NATURA SEE SCANNED REPORT Normal [facility] Comment on above: Performed By: #### L 900.0098 #### [facility] [address] [place], [address] Neisseria gonorrhoeae nuclei c acid detection by amplified probe techniqueOrdered By: Rosaline Hansen on 03-04-2025 N. gonorrhoeae DNA RICK+probe Ql (Unsp spec) Negative Negative [facility] Comment on above: Performed at: = - [address] [place] [id number] Director: Milagros Roque MD, Phone: [phone] Neutrophil percentageOrdered By: Rosaline Hansen on 03-04-2025 Neutrophils/100 WBC (Bld) 68.6 % 47-70 [facility] No Panel InformationOrdered By: Rosaline Hansen on 03-04-2025 Pap Smear Specimen Adequacy Comment . [facility] Comment on above: Satisfactory for isa luation. No endocervical component is identified.An endocervical component is not commonly seen in the patient. HIV (1&2) Antibody Non-Reactive Nonreactive [facility] Comment on above: Non-ReactiveReactive Repeatedly reactive samples must be confirmed according to CDC recommended confirmatory algorithms. The subresults for either HIVAG or AHIV can be used as an aid in the selection of the confirmation algorithm for reactive samples.Send out specimens with Reactive results to [facility] for confirmation.Order the HIV antibody detection and differentiation: #[id number] Nucleated red blood cell per centageOrdered By: Rosaline Hansen on 03-04-2025 Nucleated RBC/100 WBC (Bld) [Ratio] 0 % 0-5 [facility] Liability Claims Adjuster Office Visit Reporton 03-04-2025 Liability Claims Adjuster Office Visit Report [facility] [address], [address] [place] [address] OFFICE VISIT Date of Service: 03/04/25 MR#: [id number] Acct: [id number] Name: DANIEL HODGSON Rep #: [id number] : 2005 Provider: Dr. Delaney Rosa DO Age/Sex: 20/F [place] [facility] [place] Status: Signed Intake Vital Signs 06/27/24 21:03 02/26/25 11:42 03/04/25 10:34 Height 5 ft 1 in 5 ft 1 in 5 ft 1 in Weight: 139 lb BMI 26.2 BP 120/80 Intake Visit Reasons: *NEW* NOB LMP 12/14, JENIFER 09/20 Site Promotion Agent Required: No Is patient in pain?: No Allergies No Known Allergies Allergy (Verified 03/04/25 10:35) Medications ???Medication ???Instructions ???Recorded ???Confirmed ???Type docosahexaenoic acid 200 mg mg PO 02/26/25 03/04/25 History capsule ( DHA) Last Menstrual Period: 12/14/24 Zika: Zika virus screening: Negative : No PFSH PFSH Family History Sister Queta's disease Thyroid disorder Grandfather Diabetes Heart disease Grandmother Diabetes Congestive heart failure Grandfather Diabetes Grandmother Lung cancer Liver cancer Brain cancer Aunt Migraines Mother Asthma Migraines Aunt Multiple sclerosis Social History adopted: No household members: family and other details: Mom Dad, Grandfather, Sister number of children: 0 current occupational status: unemployed current occupational exposures/hazards: No pets and animals: Yes pets and animals: cat(s) and dog(s) history of recent travel: No sexually active: Yes Smoking Status: Never smoker second hand exposure: Yes (BF's family smokes) alcohol intake: never substance use type: does not use well-balanced diet: about half the time caffeine: No eating out: 1-3 times/week during the past year weight has: remained stable what type of physical activity do you participate in: none mey/buddhist: None seatbelt use: always do you feel safe at home: Yes additional social history: BF: Trevous - unemployed History 0 Elective abortions 0 Hx Para Spontaneous abortions 0 Hx # Term Pregnancies Ectopic pregnancies Hx # Pregnancies Multiple births # of living children HPI *NEW* NOB LMP 12/14, JENIFER 09/20 Details: DANIEL HODGSON is a 20 year old who presents for New OB visit. OB Visit JENIFER Calculator Estimated Delivery Date Method Current WG Current Estimate 09/20/25 LMP (Certain) 11w 3d Estimated Due Date: 09/20/25 Expected Delivery Route/Plan Labor Preferences- CB/BF classes: discussed - labor support person: [] labor intervention preferences: [] pain management options preferred: [] cut cord/dad catch: [] : [] PP control planned: [] discussed possible routes of delivery and associated risks: [] special requests: [] Specific Issue/Plans Covid status: unvaccinated Flu vaccine: unvaccinated Tdap vaccine: [] Rhogam: [] LARC form signed: [] Problem list reviewed and updated with the most current plan of care details and appropriate orders placed. Relevant counseling for the gestational age provided. Continue routine care and follow up unless otherwise noted in visit notes/problem list details Initial Weight: 139 lb Date -???-???-???-???-?? ?-???-???-???-???-? ??-???-???- EGA Weight BP Urine Prot -???-???-???-???-?? ?-???-???-???-???-? ??-???-???- Glucose FHR FuHt Pres Dilation -???-???-???-???-?? ?-???-???-???-???-? ??-???-???- Effaced St Visit Note 03/04/25 -???-???-???-???-?? ?-???-???-???-???-? ??-???-???- 11w 3d 139 lb (+0 oz) 120/80 -???-???-???-???-?? ?-???-???-???-???-? ??-???-???- -???-???-???-???-?? ?-???-???-???-???-? ??-???-???- JV- CRL cons itent with LMP, had early us with care center. desires NIPT without carrier testing. Menstrual History Last Menstrual Period: 12/14/24 Reported LMP: definite Normal amount/duration: Yes Frequency in days: 28 On hormonal BC at conception: No hCG+: 02/10/25 Antepartum Record Genetic Screening: Congenital Heart Defect: Other, Neural Tube Defect: Other, Hemoglobinopathy Or Carrier: Other, Cystic Fibrosis: Other, Chromosome Abnormality: Other, Davis-Sachs: Other, Hemophilia: Other, Intellectual Disability/Autism: Other, Recurrent Loss/Stillbirth: Other, Other Structural Defect: Other, Other Genetic Disease: Other and Maternal Metabolic Disorder: Other Infection History: Live with someone with TB or Exposed to TB: No, Patient or Partner has history of Genital Herpes: No, Rash or Viral illness since last mentrual period: No, Prior GBS-Infected child: No, History of STD: No, HIV Infection: No, History of Hepatitis: No, Recent travel (more content not included)... Normal [facility] Platelet countOrdered By: Shahid Hansen on 03-04-2025 Platelets (Bld) [#/Vol] 254 10*3/uL 150-450 [facility] RBC Auto (Bld) [#/Vol]Ordere d By: Rosaline Hansen on 03-04-2025 RBC (Bld) [#/Vol] 4.60 10*6/uL 4.2-5.4 [facility] Syphilis Antibodieson 2024 Syphilis Abs Non-Reactive Normal Nonreactive [facility] Comment on above: Performed By: #### M 100.2200, L509.4006, L3890.6006, L3890.6102, L100.0100, BTS, L509.8002, L3890.6301 ####[facility] [address] [place], [address] Type AND Screenon 03-04-2025 Ab SCREEN GEL Negative Normal [facility] Comment on above: Order Comment: DECLAN MADRIGAL Performed By: #### M 100.2200, L509.4006, L3890.6006, L3890.6102, L100.0100, BTS, L509.8002, L3890.6301 #### [facility] [address] [place], [place], [id number] Urine cultureOrdered By: Maikel Hansen on 03-04-2025 Bacteria identified Cx Nom (U) Escherichia coli Abnormal [facility] Bacteria identified Cx Nom (U) Escherichia coli Abnormal [facility] White blood cell (WBC) count Ordered By: Rosaline Hansen on 03-04-2025 WBC (Bld) [#/Vol] 5.2 10*3/uL 4.4-11.0 [facility] Office Visit Reporton 2024 Office Visit Report [facility] [place] [address] OFFICE VISIT Date of Service: 02/26/25 MR#: [id number] Acct: [id number] Patient: DANIEL HODGSON Rep #: [id number] : 2005 Provider: Dr. Rosaline moy MD Age/Sex: 20/F [place] [facility] [place] Status: Signed Intake Vital Signs 06/27/24 21:03 02/26/25 11:42 Height 5 ft 1 in 5 ft 1 in Weight: 140 lb 4 oz BMI 26.4 BP 112/60 Intake Visit Reasons: PNOB Vitals, Education Chief Complaint: In person PNOB Accompanied by: Mother Allergies No Known Allergies Allergy (Verified 02/26/25 10:59) Medications ???Medication ???Instructions ???Recorded ???Confirmed ???Type docosahexaenoic acid 200 mg mg PO 02/26/25 02/26/25 History capsule ( DHA) Is last menstrual period known: Yes Post menopausal: No Patient : Yes Have you fallen in the past year?: No Nurse's Note: Pt here for secondary amenorrhea. Vitals WNL. PNOB questions completed. Problem list, allergies, and medications updated. First trimester ACOG education completed. 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 (2) : Status: Acute Comment: Discuss genetic/carrier testing - undecided (3) Supervision of normal : Status: Acute Comment: , JENIFER 09/20/25, BF: Trevous Orders: Orders CBC W/Diff, Automated Today Z34.90 - Encounter for supervision of normal , unspecified, unspecified trimester Type Screen Today Z34.90 - Encounter for supervision of normal , unspecified, unspecified trimester Rubella IgG Today Z34.90 - Encounter for supervision of normal , unspecified, unspecified trimester Hepatitis C Antibody Today Z34.90 - Encounter for supervision of normal , unspecified, unspecified trimester Hepatitis B Surface Antigen Today Z34.90 - Encounter for supervision of normal , unspecified, unspecified trimester Culture, Urine Today Z34.90 - Encounter for supervision of normal , unspecified, unspecified trimester Syphilis Antibodies Today Z34.90 - Encounter for supervision of normal , unspecified, unspecified trimester Chlamydia/GC RICK aptima Today Z34.90 - Encounter for supervision of normal , unspecified, unspecified trimester HIV Today Z34.90 - Encounter for supervision of normal , unspecified, unspecified trimester PAP I-G w/rfx hrHPV-Aptima Today Z12.4 - Encounter for screening for malignant neoplasm of cervix Clinical Quality Measures Falls Risk Screening/Assistive Devices Have you fallen in the past year?: No 02/26/25 1657 Date Rosaline Hansen MD [facility] Signature: Date (if applicable) CC: Normal [facility] Emergency Department Summary on 06-27-2024 Emergency Department Summary [facility] Medical Records Department [address] [place] [address] Emergency Department Summary 06/27/24 MR#: [id number] Acct: [id number] Name: DANIEL HODGSON Rep #: [id number] 2 : 2005 19 From: Wayne Nice MD PCP: Dr. José Miguel Osorio MD Status:PRE ER Location: ED HPI History of Present Illness Chief Complaint: Dental Detail of Chief Complaint: Dental pain and facial swelling over the right maxillary region Informant: patient and family Onset/Context/Timin g Onset: Today Context: Sudden Onset Quality: Tooth #30, pain Current Severity: Mild Maximum Severity: Moderate Worsened by: Chewing Associated Symptoms Assocated Symptom - Dental: face swelling; Negative for fever, jaw swelling, cold sensitivity or hot sensitivity Narrative Narrative: Patient is a 19-year-old female. She has no history of rheumatic fever, heart murmur, SBE or mitral valve prolapse. She has no allergies to medication. She denies difficulty opening or closing her mouth. She believes she has a sinus infection. She has been blowing her nose for the past week. She was informed since she has not had symptoms for more than 2 weeks does not have a sinus infection. There is swelling and pain over the right maxillary sinus is all likely due to her dental infection. She has an appointment to follow-up with Jade Schroeder. The triage note was reviewed. Prior similar symptoms: Yes Recent Illness/Hospitaliza tion: Yes (Seen for problems with tooth 30. Apparently the tooth was not completely e) PFSH PFSH Medical History no medical history no medical history Home Medications ???Medication ???Instructions ???Recorded ???Last Taken ???Type amoxicillin 400 mg/5 mL oral 800 mg (10 mL) PO Q12H 7 days 09/27/17 Unknown Rx suspension hydrocodone-acetami nophen 5-325mg 1 tab PO Q6H PRN PRN Pain 3 days 06/27/24 Unknown Rx 5mg-325mg #10 TABLETS naproxen 500 mg tablet 500 mg PO BID #14 tabs 06/27/24 Unknown Rx penicillin V potassium 500 mg 500 mg PO 4X/DAY #40 tabs 06/27/24 Unknown Rx tablet Allergy/AdvReac Type Severity Reaction Status Date / Time No Known Allergies Allergy Verified 06/27/24 21:06 Family History no significant family his Surgical History no surgical history no surgical history Social History Smoking Status: Never smoker [facility] ED Constitutional Constitutional ED: Denies chills, fever(s), subjective, sweats or weight loss Eyes Eyes: Denies blurry vision or change in vision ENT ENT ED: Reports other Details: Facial swelling and tooth pain. No complaint of opening or closing her mouth completely. Cardiovascular Cardiovascular: Denies chest pain or palpitations Respiratory/Chest Respiratory/Chest: Denies cough, dyspnea or dyspnea on exertion Integumentary Denies rash Neurologic Neurologic: Denies headache(s) EXAM Physical Exam Const Vital Signs: 06/27/24 21:03 Temperature 98.3 F Temperature Source Temporal Pulse Rate 124 H Respiratory Rate 18 Blood Pressure 127/85 H Blood Pressure Mean 99 Pulse Ox 98 Oxygen Delivery Method Room Air Positive well nourished and well developed General Appearance ED: well developed and NAD HEENT HEENT Narrative: Patient has a cavity into the dentin tooth #29. Tooth 30 is eroded to the gumline. There is swelling over the right maxillary region. No tenderness with palpation of the right maxillary sinus or left maxillary sinus. Negative for trauma or tenderness Face and Sinus: Negative for sinuses nontender Mouth ED: Yes oral and palatal mucosa normal, Yes lips normal, Yes tongue normal, Yes salivary gland normal, No mouth trauma and Yes oral and palatal mucosa abnormal Mouth: oral and palatal mucosa normal, lips normal, tongue normal, salivary gland normal, No mouth trauma and oral and palatal mucosa abnormal Teeth and Gingiva: caries and teeth discoloration; Negative for gingiva abnormal Eyes PERRL and EOMs intact bilaterally Neck no lymphadenopathy, supple and no JVD Lymph Lymphatic: no lymphadenopathy noted Resp normal respiratory effort, no retractions and clear to auscultation bilaterally Cardio regular rate, regular rhythm, S1 normal heart sound, S2 normal heart sound and no murmurs Neuro oriented x3 and CN's II-XII intact bilaterally Sensorium / Orientation: alert Psych mental status grossly normal Skin no rashes or lesions noted and no wounds MDM MDM MDM Narrative Medical decision making narrative: Patient with dental carry tooth #29 and significant decay of tooth #30. Patient's findings are consistent with apical abscess. She was treated with NSAID, opiate analgesia and antibiotic. She has no contraindication to NSAIDs. In my opinion no laboratory testing is needed. Vital signs are marked for (more content not included)... Normal [facility] CNOVon 06-06-2023 CNOV Office Visit ([facility]) ---- DANIEL HODGSON ([id number]) 3 F Date Time Provider Department 06/06/23 10:15 AM LUIS FOSTER [facility] During your visit today, we recorded the following information about you: Temperature Pulse Respiration Blood pressure 98.2 degrees 108/minute 18/minute 120/72 Weight 71.2 kg Luis Foster MD 06/06/2023 10:56 AM Signed Patient presents with: Sinus Problem: sinus pressure, drainage, cough x 3 days HPI: Feeling sick for 4 days. Positive symptoms: Cough, wheezing and Shortness of breath yesterday, sleep disturbance from cough, Sinus pressure, Nasal Congestion, Rhinorrhea, resolved sore throat Negative symptoms: Fever, Vomiting, Diarrhea, OTC: Cold Medicine Home COVID test negative. No past history of asthma or pneumonia. MEDICATIONS: No current outpatient medications on file. No current facility-administer ed medications for this visit. ALLERGIES: ALLERGIES No Known Allergies VITALS: BP 120/72 Pulse 108 Temp 36.8 ?C (98.2 ?F) Resp 18 Wt 71.2 kg (157 lb) LMP 05/08/2021 SpO2 99% PHYSICAL EXAM: GEN: mildly ill appearing. Accompanied by her mother. HEENT: PERRL, EOMI, conjunctiva clear Ears: canals with distal soft cerumen Visible TMs without erythema, bulge, or effusion Nose: congested Throat: moist mucous membranes, mild erythema, no exudate Neck: supple, no thyromegaly, no lymphadenopathy HEART: regular rate and rhythm during my exam, no murmurs LUNGS: clear to auscultation, no wheezes or crackles, no increased WOB ASSESSMENT/PLAN: 1. Acute cough - ICD9: 786.2, ICD10: R05.1 - suspect viral URI - Discussed supportive care treatment with rest, cold medicine, and analgesia. - COVID NAAT, UPPER RESPIRATORY, ROUTINE - would like to confirm. - BENZONATATE 100 MG CAPSULE Luis Foster MD Allergies As of Date: 06/06/2023 (No Known Allergies) Date Reviewed: 06/06/2023 Reviewed by: José Miguel Valdivia - Fully Assessed Reason for Visit: Sinus Problem [99] Cmt: sinus pressure, drainage, cough x 3 days Primary Visit Diagnosis:Acute cough [R05.1] Order(s):COVID NAAT, UPPER RESPIRATORY, ROUTINE [SQCOVID] Order #: [id number]. #:[id number] benzonatate (TESSALON PERLE) 100 mg capsuleTake 1 capsule by mouth every 8 hours as needed for cough for up to 15 days.Disp: 30 capsuleRfl: 0 Prescriptions as of 06/06/2023 - benzonatate (TESSALON PERLE) 100 mg capsule Take 1 capsule by mouth every 8 hours as needed for cough for up to 15 days. Problem List As Of Date: 06/06/2023 (None) Prescriptions ordered this encounter Disp Refills Start End BENZONATATE 100 MG CAPSULE 30 c* 0 06/06/2023 06/21/2023 Route: ORAL Sig: Take 1 capsule by mouth every 8 hours as needed for cough for up to 15 days. Letter Text Encounter Status:Closed by LUIS FOSTER on 06/06/23 Normal [facility] SARS-CoV-2 RNA Resp Ql RICK+p beata 06-06-2023 SARS-CoV-2 (COVID-19) RNA RICK+probe Ql (Resp) COVID 19 RESULT: Not detected The method used is RT-PCR or an equivalent NAAT method. Reference Range (the expected result in uninfected individuals): Not detected Normal [facility] Comment on above: Performed By: #### 9 [id number] #### [facility] CLIA [id number] [address] [place] [address] [place] Amrbeen 12-21-2022 CNPN Telephone (PEDSWS) ---- DANIEL HODGSON ([id number]) 3 F Date Time Provider Department 12/21/22 JOSÉ MIGUEL OSORIO During your visit today, we recorded the following information about you: Odilon Muir 12/21/2022 12:50 PM Signed Patients mother is needing medical records printed. Please call [phone] when ready, she will sign release when she comes to pick them up in [facility]'s main lobby Bharati Loza RN 12/21/2022 1:19 PM Signed spoke with patient, is aware to contact medical records for this. web site given also explained how to come to facility to sign paper for release if prefers to do it that way. verbalizes understanding Bharati Loza RN Allergies As of Date: 12/21/2022 (No Known Allergies) Date Reviewed: 05/22/2021 Reviewed by: José Miguel Osorio MD - Fully Assessed Reason for Visit: requesting medical records [Other] Problem List As Of Date: 12/21/2022 (None) Encounter Status:Closed by BHARATI LOZA RN on 12/21/22 Normal [facility] Vital Signs Date Time Vital Sign Value Performing Clinician Vincenzoi danielle 05-28-2025 11:27-0400 Body height 154.[address] José Miguel Osorio MD Work Phone: [facility] 05-28-2025 11:26-0400 Body mass index (BMI) [Ratio] 26.7 kg/m2 Dr. José Miguel Osorio MD Work Phone: [facility] 05-28-2025 11:26-0400 Body weight 64.[address] José Miguel Osorio MD Work Phone: [facility] 05-28-2025 11:26-0400 Diastolic blood pressure 75 mm[Hg] Dr. José Miguel Osorio MD Work Phone: [facility] 05-28-2025 11:26-0400 Systolic blood pressure 117 mm[Hg] Dr. José Miguel Osorio MD Work Phone: [facility] 04-30-2025 09:41-0400 Body height 154.[address] José Miguel Osorio MD Work Phone: [facility] 04-30-2025 09:41-0400 Body mass index (BMI) [Ratio] 26.7 kg/m2 Dr. José Miguel Osorio MD Work Phone: 4(474)907-814852 [place] [address] 04-30-2025 09:41-0400 Body weight 64.[address] José Miguel Osorio MD Work Phone: 6(871)308-073252 [place] [address] 04-30-2025 09:41-0400 Diastolic blood pressure 76 mm[Hg] Dr. José Miguel Osorio MD Work Phone: 4(609)233-426852 [place] [address] 04-30-2025 09:41-0400 Systolic blood pressure 118 mm[Hg] Dr. José Miguel Osorio MD Work Phone: 7(087)534-632952 [place] [address] 04-03-2025 16:01-0400 Body height 154.[address] José Miguel Osorio MD Work Phone: 7(889)054-409052 [place] [address] 04-03-2025 16:01-0400 Body mass index (BMI) [Ratio] 26.9 kg/m2 Dr. José Miguel Osorio MD Work Phone: 0(511)292-019252 [place] [address] 04-03-2025 16:01-0400 Body weight 64.[address] José Miguel Osorio MD Work Phone: 1(152)960-860452 [place] [address] 04-03-2025 16:01-0400 Diastolic blood pressure 55 mm[Hg] Dr. José Miguel Osorio MD Work Phone: 9(856)962-232252 [place] [address] 04-03-2025 16:01-0400 Systolic blood pressure 104 mm[Hg] Dr. José Miguel Osorio MD Work Phone: 8(756)092-624652 [place] [address] 03-04-2025 10:34-0400 Body height 154.[address] José Miguel Osorio MD Work Phone: 9(621)624-474552 [place] [address] 03-04-2025 10:34-0400 Body mass index (BMI) [Ratio] 26.2 kg/m2 Dr. José Miguel Osorio MD Work Phone: 2(134)544-339252 [place] [address] 03-04-2025 10:34-0400 Body weight 63.[address] José Miguel Osorio MD Work Phone: 6(400)153-263852 [place] [address] 03-04-2025 10:34-0400 Diastolic blood pressure 80 mm[Hg] Dr. José Miguel Osorio MD Work Phone: 4(238)137-638055 [place] [address] 03-04-2025 10:34-0400 Systolic blood pressure 120 mm[Hg] Dr. José Miguel Osorio MD Work Phone: 7(268)096-592452 [place] [address] 02-26-2025 11:42-0400 Body mass index (BMI) [Ratio] 26.4 kg/m2 Dr. José Miguel Osorio MD Work Phone: 1(745)104-795252 [place] [address] 02-26-2025 11:42-0400 Body weight 63.[address] José Miguel Osorio MD Work Phone: 7(123)060-463552 [place] [address] 02-26-2025 11:42-0400 Diastolic blood pressure 60 mm[Hg] Dr. José Miguel Osorio MD Work Phone: 9(046)860-072652 [place] [address] 02-26-2025 11:42-0400 Systolic blood pressure 112 mm[Hg] Dr. José Miguel Osorio MD Work Phone: 3(943)845-049555 [place] [address] 06-06-2023 10:21-0400 Body temperature 98.2 [degF] Luis Foster MD Work Phone: 5(544)791-522377 [place] [address] 06-06-2023 10:21-0400 Body weight 71.22 kg Luis Foster MD Work Phone: 3(161)635-920177 [place] [address] 06-06-2023 10:21-0400 Diastolic blood pressure 72 mm[Hg] Luis Foster MD Work Phone: [facility] 06-06-2023 10:21-0400 Heart rate 108 /min Luis Foster MD Work Phone: [facility] 06-06-2023 10:21-0400 Respiratory rate 18 /min Luis Foster MD Work Phone: [facility] 06-06-2023 10:21-0400 SaO2% (BldA) [Mass fraction] 99 % Luis Foster MD Work Phone: [facility] 06-06-2023 10:21-0400 Systolic blood pressure 120 mm[Hg] Luis Foster MD Work Phone: [facility] Encounters Encounter Date Encounter Type Care Provider Facility Start: 06-21-2025 ambulatory Rosaline Lira lity:[facility] Start: 05-28-2025 End: 05-28-[address] Delaney Cordova DO -[facility] Work Phone: Start: 05-28-2025 End: 05-28-[address] José Miguel Osorio MD Work Phone: [facility] Start: 05-21-2025 End: 05-21-2025 ambulatory JOSÉ MIGUEL OSORIO [facility] Start: 05-06-2025 End: 05-06-2025 ambulatory OREMVICKI [facility] Start: 04-30-2025 End: 04-30-[address] José Miguel Osorio MD Work Phone: -Laboratory Specimen Start: 04-30-2025 End: 04-30-[address] Delaney Cordova DO -Laboratory Specimen Work Phone: Start: 04-30-2025 End: 04-30-2025 Patient encounter procedure Mary Ellen KELLEY -[facility] Work Phone: Start: 04-30-2025 End: 04-30-[address] José Miguel Osorio MD Work Phone: [facility] Start: 04-30-2025 End: 04-30-2025 ambulatory José Miguel Osorio Facility:[facility] Start: 04-03-2025 End: 04-03-[address] Delaney Cordova DO -[facility] Work Phone: Start: 04-03-2025 End: 04-03-[address] José Miguel Osorio MD Work Phone: [facility] Start: 03-04-2025 End: 03-04-[address] Delaney Cordova DO -[facility] Work Phone: Start: 03-04-2025 End: 03-04-[address] José Miguel sOorio MD Work Phone: -[facility] Start: 03-04-2025 End: 03-04-2025 [facility] Start: 02-26-2025 End: 02-26-[address] Rosaline Hansen MD -[facility] Work Phone: Start: 02-26-2025 End: 02-26-[address] José Miguel Osorio MD Work Phone: -[facility] Start: 06-27-2024 End: 06-27-2024 [facility] Start: 06-06-2023 End: 06-06-[address] [facility] Facility:[facility] Start: 06-06-2023 End: 06-06-2023 Patient encounter procedure Luis Foster MD Work Phone: [facility] Comment on above: Acute cough (Primary Dx) Procedures Date Procedure Procedure Detail Performing Clinician Start: 04-30-[address] Rupa Osorio MD Work Phone: Start: 03-04-2025 Liquid based cervica l cytology screening Dr. José Miguel Osorio MD Work Phone: Comment on above: NEGATIVE FOR INTRAEP ITHELIAL LESION OR MALIGNANCY. This liquid based Th inPrep(R) pap test was screened withthe use of an image guided system. The HPV DNA reflex c riteria were not met with this specimenresult therefore, no HPV testing was performed.Performed at: [facility] [id number] [place], [place] [id number] Director: Mynor Steele MD, Phone: [phone] at: - [place] [id number] Director: Milagros Roque MD, Phone: [phone] Start: 03-04-[address] Rupa Osorio MD Work Phone: Start: 03-04-2025 Hepatitis C antibody measurement Dr. José Miguel Osorio MD Work Phone: Comment on above: Reactive: Presumptiv e evidence of antibodies to HCV. Follow CDC recommendations for supplemental testing.Non-Reactive: Antibodies to HCV were not detected; does not exclude the possibility of exposure to HCVReactive Results are presumptive evidence of antibodies to HCV. Follow CDC recommendations for supplemental testing.Order confirmation testing: HCV Quant by PCR testing - HCVPCR lc#[id number] Non Reactive: < 0.8 Equivocal: >/= 0.8 to < 1.0 Reactive: >/= 1.0The CDC requires that a reactive/equivocal HCV antibody result be sent out for confirmation. HCV Quant by PCR testing. Start: 03-04-[address] Regino Osorio MD Work Phone: Start: 03-04-[address] José Miguel Osorio MD Work Phone: Comment on above: Antibody Result: Int erpretationNon-Reactive: Non- ImmuneReactive: ImmuneThe following results were obtained with the [employer] Rubella IgG assay. Results from assays of other manufacturers cannot be used interchangeably. Start: 03-04-2025 Serologic test for syphilis Dr. José Miguel Osorio MD Work Phone: Plan of Treatment Date Care Activity Detail Author Start: 09-12-2027 Urine microalbumin profile DTaP,Tdap,Td Vaccine (5 - Td or Tdap) [facility] Start: 05-28-2025 Measurement of glucose 2 hours after glucose challenge for glucose tolerance test [facility] Start: 05-28-2025 Serologic test for syphilis [facility] Start: 05-28-2025 [facility] Start: 03-04-2025 Bacteria identified in Urine by Culture Urine Culture [facility] Start: 03-04-2025 CBC W Auto Differential panel - Blood [facility] Start: 03-04-2025 Hepatitis C antibody measurement [facility] Start: 03-04-2025 Rubella IgG measurement [facility] Start: 03-04-2025 Serologic test for syphilis [facility] Start: 03-04-2025 [facility] Start: 03-04-2025 Procedure [facility] Start: 04-08-2023 Influenza vaccination Influenza Vaccine (#1) [facility] Start: 08-08-2022 Depression Assessment Depression Assessment [facility] Start: 02-14-2022 Chlamydia Screening (18-24) Chlamydia Screening (18-24) [facility] Start: 02-14-2022 GC (Gonorrhea) Screening (18-24) GC (Gonorrhea) Screening (18-24) [facility] Start: 02-14-2022 Hepatitis C Screening Hepatitis C Screening [facility] Start: 02-14-2022 HIV Screening HIV Screening [facility] Start: 2020 Meningococcal B Vaccine: Consider Based On Risk (1 of 2 - Patient Seeks Protection) Meningococcal B Vaccine: Consider Based On Risk (1 of 2 - Patient Seeks Protection) [facility] Start: 02-14-2018 Peds To Adult Transition Annual Assessment Peds To Adult Transition Annual Assessment [facility] Start: 2004 Covid-19 Vaccine (#1) Covid-19 Vaccine (#1) [facility] CBC W Auto Different ial panel - Blood [facility] Chlamydia deoxyribon ucleic acid detection [facility] Erythrocyte mean corpuscular volume determination [facility] Hematocrit [Volume Fraction] of Blood [facility] Hemoglobin [Mass/vol ume] in Blood [facility] Hepatitis B virus mccall rface Ag [Presence] in Serum [facility] Leukocytes [#/volume ] in Blood [facility] Liquid based cervica l cytology screening [facility] Mean corpuscular hem oglobin concentration determination [facility] Mean corpuscular hem oglobin determination [facility] Neutrophil count [facility] Neutrophil percent differential count [facility] Platelets [#/volume] in Blood [facility] Red blood cell count [facility] Red cell distributio n width determination [facility] SARS-CoV-2 (COVID-19 ) RNA [Presence] in Respiratory specimen by RICK with probe detection COVID NAAT, UPPER RESPIRATORY, ROUTINE Microbiology Routine Acute cough 06/06/2023 11:42 AM EDT [facility] Work Phone: Urine culture [facility] Immunizations Immunization Date Immunization Notes Care Provider Brian martin 05-22-2021 Human Papillomavirus 9-valent vaccine Luis Foster MD Work Phone: [facility] 05-22-2021 meningococcal polysaccharide (groups A, C, Y and W-135) diphtheria toxoid conjugate vaccine (MCV4P) Luis Foster MD Work Phone: [facility] 09-12-2017 Human Papillomavirus 9-valent vaccine Luis Foster MD Work Phone: [facility] 09-12-2017 influenza, injectabl e, quadrivalent, contains preservative Luis Foster MD Work Phone: [facility] 09-12-2017 meningococcal polysaccharide (groups A, C, Y and W-135) diphtheria toxoid conjugate vaccine (MCV4P) Luis Foster MD Work Phone: [facility] 09-12-2017 tetanus toxoid, redu varun diphtheria toxoid, and acellular pertussis vaccine, adsorbed Luis Foster MD Work Phone: [facility] 09-12-2017 influenza virus vacc ine, unspecified formulation Luis Foster MD Work Phone: [facility] 07-19-2007 diphtheria, tetanus toxoids and acellular pertussis vaccine Luis Foster MD Work Phone: [facility] 07-19-2007 diphtheria, tetanus toxoids and acellular pertussis vaccine, unspecified formulation Luis Foster MD Work Phone: [facility] 07-19-2007 influenza virus vacc ine, unspecified formulation Luis Foster MD Work Phone: [facility] 07-19-2007 influenza virus vacc ine, whole virus Luis Foster MD Work Phone: [facility] 07-19-2007 pneumococcal conjuga te vaccine, 7 valent Luis Foster MD Work Phone: [facility] 07-19-2007 poliovirus vaccine, inactivated Luis Foster MD Work Phone: [facility] [facility] 04-27-2007 diphtheria, tetanus toxoids and acellular pertussis vaccine Luis Foster MD Work Phone: [facility] 04-27-2007 DTaP-hepatitis B and poliovirus vaccine Luis Foster MD Work Phone: [facility] 04-27-2007 hepatitis B vaccine, pediatric or pediatric/adolescent dosage Luis Foster MD Work Phone: [facility] 04-27-2007 poliovirus vaccine, inactivated Luis Foster MD Work Phone: [facility] 10-21-2005 diphtheria, tetanus toxoids and acellular pertussis vaccine Luis Foster MD Work Phone: [facility] 10-21-2005 DTaP-hepatitis B and poliovirus vaccine Luis Foster MD Work Phone: [facility] 10-21-2005 haemophilus influenz ae type b vaccine, conjugate unspecified formulation Luis Foster MD Work Phone: [facility] 10-21-2005 hepatitis B vaccine, pediatric or pediatric/adolescent dosage Luis Foster MD Work Phone: [facility] 10-21-2005 measles, mumps and rubella virus vaccine Luis Foster MD Work Phone: [facility] 10-21-2005 pneumococcal conjuga te vaccine, 7 valent Luis Foster MD Work Phone: [facility] 10-21-2005 poliovirus vaccine, inactivated Luis Foster MD Work Phone: [facility] 10-21-2005 varicella virus vaccine Omid Foster MD Work Phone: [facility] 2004 hepatitis B vaccine, pediatric or pediatric/adolescent dosage Luis Foster MD Work Phone: [facility] Payers Date Payer Category Payer Self-pay 2024 Unknown [id number] 2022 Medicaid [place] [employer] [facility] MEDICAID [id number] 2022-Present [phone] [address] [place] [address] Medicaid [id number] 2014 Medicaid [id number] 2004 Unknown [id number] 2004 Unknown [id number] Unknown [id number] Unknown [id number] Unknown [id number] Unknown [id number] Unknown [id number] Unknown [id number] Unknown [id number] Unknown [id number] Unknown [id number] Social History Date Type Detail Facility Start: 10-15-2013 End: 02-26-2025 Tobacco smoking status NHIS Never smoked tobacco [facility] Start: 10-15-2013 Tobacco use and exposure Smoke less tobacco non-user [facility] Start: 06-06-2023 Alcohol intake Not Asked Gabriele young [facility] Start: 04-15-2021 End: 06-06-2023 [facility] of [facility] Start: 04-15-2021 End: 06-06-2023 Tobacco use panel [facility] How hard is it for y ou to pay for the very basics like food, housing, medical care, and heating Not very hard [facility] (I/We) worried daniel er (my/our) food would run out before (I/we) got money to buy more. Never true [facility] In the past 12 month s, has lack of transportation kept you from medical appointments or from getting medications? No [facility] In the past 12 month s, was there a time when you were not able to pay the mortgage or rent on time? No [facility] Start: 2004 Sex Assigned At Female [facility] Start: 06-06-2023 Gender identity Identifies as female gender (finding) [facility] Clinical Notes 06-06-2023 to 05-28-2025 Note Date & Type Note Facility 05-28-2025 Progress note [facility] 04-30-2025 Progress note [facility] 04-03-2025 Progress note [facility] 04-03-2025 Progress note Note Date/Time April 03, 2025 4:39pm [facility] [address], [address] [place] [address] OFFICE VISIT Date of Service: 04/03/25 MR#: [id number] Acct: [id number] Name: DANIEL HODGSON ep #: [id number] : 2005 Provider: Dr. Sarah Cordova DO Age/Sex: 20/F Location[place] [facility] Status: Signed Intake Vital Signs 06/27/24 21:03 03/04/25 10:34 04/03/25 16:01 Height 5 ft 1 in 5 ft 1 in 5 ft 1 in Weight: 142 lb 9 oz BMI 26.9 BP 104/55 L Intake Visit Reasons: 15wk OB Site Promotion Agent Required: No Is patient in pain?: No Allergies No Known Allergies Allergy (Verified 04/03/25 15:59) Medications ?Medication ?Instructions ?Recorded ?Confirmed ?Type docosahexaenoic acid 200 mg mg PO 02/26/25 04/03/25 Hi story capsule ( DHA) ondansetron 4 mg disintegrating 4 mg PO Q6H PRN nausea and 03/19/25 04/03/25 Rx tablet vomiting #30 tabs Last Menstrual Period: 12/14/24 Zika: Zika virus screening: Negative : No PFSH PFSH Family History Sister Queta's disease Thyroid disorder Grandfather Diabetes Heart disease Grandmother Diabetes Congestive heart failure Grandfather Diabetes Grandmother Lung cancer Liver cancer Brain cancer Aunt Migraines Mother Asthma Migraines Aunt Multiple sclerosis Social History adopted: No household members: family and other details: Mom & Dad, Grandfather, Sister number of children: 0 current occupational status: unemployed current occupational exposures/hazards: No pets and animals: Yes pets and animals: cat(s) and dog(s) history of recent travel: No sexually active: Yes Smoking Status: Never smoker second hand exposure: Yes (BF's family smokes) alcohol intake: never substance use type: does not use well-balanced diet: about half the time caffeine: No eating out: 1-3 times/week during the past year weight has: remained stable what type of physical activity do you participate in: none mey/buddhist: None seatbelt use: always do you feel safe at home: Yes additional social history: BF: Trevous - unemployed History 0 Elective abortions 0 Hx Para Spontaneous abortions 0 Hx # Term Pregnancies Ectopic pregnancies Hx # Pregnancies Multiple births # of living children HPI 15wk OB Details: DANIEL HODGSON is a 20 year old who presents for routine OB visit. OB Visit JENIFER Calculator Estimated Delivery Date Method Current WG Current Estimate 09/20/25 LMP (Certain) 15w 5d Other Estimates 09/17/25 Ultrasound #1 16w 1d Expected Delivery Route/Plan Labor Preferences- CB/BF classes: discussed - labor support person: [] labor intervention preferences: [] pain management options preferred: [] cut cord/dad catch: [] : [] PP control planned: [] discussed possible routes of delivery and associated risks: [] special requests: [] Specific Issue/Plans Covid status: unvaccinated Flu vaccine: unvaccinated Tdap vaccine: [] Rhogam: [] LARC form signed: [] Problem list reviewed and updated with the most current plan of care details and appropriate orders placed. Relevant counseling for the gestational age provided. Continue routine care and follow up unless otherwise noted in visit notes/problem list details Initial Weight: 139 lb Date -?-?-?-?-?-?-?-?-?-?-?-?- EGA Weight BP Urine Prot -?-?-?-?-?-?-?-?-?-?-?-?- Glucose FHR FuHt Pres Dilation -?-?-?-?-?-?-?-?-?-?-?-?- Effaced St Visit Note 03/04/25 -?-?-?-?-?-?-?-?-?-?-?-?- 11w 3d 139 lb (+0 oz) 120/80 -?-?-?-?-?-?-?-?-?-?-?-?- -?-?-?-?-?-?-?-?-?-?-?-?- JV- CRL consiten t with LMP, had early [facility] desires NIPT without carrier testing. 04/03/25 -?-?-?-?-?-?-?-?-?-?-?-?- 15w 5d 142 lb 9 oz (+3 lb 9 oz) 104/55 -?-?-?-?-?-?-?-?-?-?-?-?- 144 -?-?-?-?-?-?-?-?-?-?-?-?- JV- low risks NI PT boy, Gareth) JV- low risks NIPT boy, Wyat t) Her mom here with her is concerned about her boyfriend's parents smoking weed around her. we discussed keeping a safe distance in a ventilated area. ACOG First Trimester First Trimester: Desire for , Alcohol, Tobacco Cessation, Illicit/Recreational Drug/Substance Use, Intimate Partner Violence, Barriers to care, Unstable Housing, Communication Barriers, Environmental/Work Hazards, Anticipated Course of Care, Toxoplasmosis Precations, Use of Any medications, Sexual activity, Exercise, Dental Care, Sauna/Hot tub use, Seat Belt use, Childbirth classes/Hospital facilities, Travel, Indications for Ultrasound and Screening for Aneuploidy; Discussed Coding Level of Care Code OB Routine Diagnoses UTI in O23.40 Supervision of normal Z34.90 15 weeks gestation of Z3A.15 Weeks of gestation: 15 weeks 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 Rpt culture next visit. 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 Sarah Cordova DO Age/Sex: 20/F Location: [facility] Status: Signed Intake Vital Signs 06/27/24 21:03 02/26/25 11:42 03/04/25 10:34 Height 5 ft 1 in 5 ft 1 in 5 ft 1 in Weight: 139 lb BMI 26.2 BP 120/80 Intake Visit Reasons: *NEW* NOB LMP 12/14, JENIFER 09/20 Site Promotion Agent Required: No Is patient in pain?: No Allergies No Known Allergies Allergy (Verified 03/04/25 10:35) Medications ?Medication ?Instructions ?Recorded ?Confirmed ?Type docosahexaenoic acid 200 mg mg PO 02/26/25 03/04/25 Hi story capsule ( DHA) Last Menstrual Period: 12/14/24 Zika: Zika virus screening: Negative : No PFSH PFSH Family History Sister Queta's disease Thyroid disorder Grandfather Diabetes Heart disease Grandmother Diabetes Congestive heart failure Grandfather Diabetes Grandmother Lung cancer Liver cancer Brain cancer Aunt Migraines Mother Asthma Migraines Aunt Multiple sclerosis Social History adopted: No household members: family and other details: Mom & Dad, Grandfather, Sister number of children: 0 current occupational status: unemployed current occupational exposures/hazards: No pets and animals: Yes pets and animals: cat(s) and dog(s) history of recent travel: No sexually active: Yes Smoking Status: Never smoker second hand exposure: Yes (BF's family smokes) alcohol intake: never substance use type: does not use well-balanced diet: about half the time caffeine: No eating out: 1-3 times/week during the past year weight has: remained stable what type of physical activity do you participate in: none mey/buddhist: None seatbelt use: always do you feel safe at home: Yes additional social history: BF: Trevous - unemployed History 0 Elective abortions 0 Hx Para Spontaneous abortions 0 Hx # Term Pregnancies Ectopic pregnancies Hx # Pregnancies Multiple births # of living children HPI *NEW* NOB LMP 12/14, JENIFER 09/20 Details: DANIEL HODGSON is a 20 year old who presents for New OB visit. OB Visit JENIFER Calculator Estimated Delivery Date Method Current WG Current Estimate 09/20/25 LMP (Certain) 11w 3d Estimated Due Date: 09/20/25 Expected Delivery Route/Plan Labor Preferences- CB/BF classes: discussed - labor support person: [] labor intervention preferences: [] pain management options preferred: [] cut cord/dad catch: [] : [] PP control planned: [] discussed possible routes of delivery and associated risks: [] special requests: [] Specific Issue/Plans Covid status: unvaccinated Flu vaccine: unvaccinated Tdap vaccine: [] Rhogam: [] LARC form signed: [] Problem list reviewed and updated with the most current plan of care details and appropriate ordersplaced. Relevant counseling for the gestational age provided. Continue routine care and follow up unless otherwise noted in visit notes/problem list details Initial Weight: 139 lb Date -?-?-?-?-?-?-?-?-?-?-?-?- EGA Weight BP Urine Prot -?-?-?-?-?-?-?-?-?-?-?-?- Glucose FHR FuHt Pres Dilation -?-?-?-?-?-?-?-?-?-?-?-?- Effaced St Visit Note 03/04/25 -?-?-?-?-?-?-?-?-?-?-?-?- 11w 3d 139 lb (+0 oz) 120/80 -?-?-?-?-?-?-?-?-?-?-?-?- -?-?-?-?-?-?-?-?-?-?-?-?- JV- CRL consiten t with LMP, [facility]. desires NIPT without carrier testing. Menstrual History Last Menstrual Period: 12/14/24 Reported LMP: definite Normal amount/duration: Yes Frequency in days: 28 On hormonal BC at conception: No hCG+: 02/10/25 Antepartum Record Genetic Screening: Congenital Heart Defect: Other, Neural Tube Defect: Other, Hemoglobinopathy Or Carrier: Other, Cystic Fibrosis: Other, Chromosome Abnormality: Other, Davis-Sachs: Other, Hemophilia: Other, Intellectual Disability/Autism: Other, Recurrent Loss/Stillbirth: Other, Other Structural Defect: Other, Other Genetic Disease: Other and Maternal Metabolic Disorder: Other Infection History: Live with someone with TB or Exposed to TB: No, Patient or Partner has history of Genital Herpes: No, Rash or Viral illness since last mentrual period: No, Prior GBS-Infected child: No, History of STD: No, HIV Infection: No, History of Hepatitis: No, Recent travel outside of [place]: No, Concern for hepatitis exposure: No, Varicella immune: Yes (Had chicken pox) and Covid Vaccinated: No Medical History Medical History: Negative: Diabetes, Hypertension, Heart disease, Auto-immune disorder, Kidney disease/UTI, Neurologic/epilepsy, Psychiatric, Depression/ depression, Hepatitis/liver disease, Varicosities/phlebitis, Thyroid dysfunction, Trauma/domestic violence, History of blood transfusions, D (Rh) Sensitized, Pulmonary (e.g.,TB,Asthma), Seasonal allergies, Drug/latex allergies/reactions, Breast, Polysomnograph Tech surgery, Operations/hospitalizations, Anesthetic complications, History of abnormal pap, Uterine anomaly/norah, Infertility, Anti-retroviral treatment, Relevant family history and Other ACOG First Trimester First Trimester: Desire for , Alcohol, Tobacco Cessation, Illicit/Recreational Drug/Substance Use, Intimate Partner Violence, Barriers to care, Unstable Housing, Communication Barriers, Environmental/Work Hazards, Anticipated Course of Care, Toxoplasmosis Precations, Use of Any med ications, Sexual activity, Exercise, Dental Care, Sauna/Hot tub use, Seat Belt use, Childbirth classes/Hospital facilities, Travel, Indications for Ultrasound and Screening for Aneuploidy; Discussed ROS Const Reports system reviewed and no additional complaints, except as documented, Reports fatigue and Denies fever(s) Eyes Reports system reviewed and no additional complaints, except as documented ENT Reports system reviewed and no additional complaints, except as documented Card Denies chest pain and Denies dyspnea Resp Reports system reviewed and no additional complaints, except as documented, Denies cough and Deniesdyspnea GI Denies abdominal pain and Reports nausea Reports system reviewed and no additional complaints, except as documented Musc Reports system reviewed and no additional complaints, except as documented Skin/Breast Reports system reviewed and no additional complaints, except as documented Neuro Yes system reviewed and no additional complaints, except as documented Psych Reports system reviewed and no additional complaints, except as documented Endo Reports system reviewed and no additional complaints, except as documented and Reports fatigue Exam Const General: healthy appearing, comfortable and no acute distress Orientation: alert HENMT Head: normal to inspection, normocephalic and atraumatic Ears: hearing grossly normal bilaterally and external ears normal Nose: external nose normal and nares normal Mouth: oral mucosae normal Teeth and gingiva: dentition normal Eyes General: appearance normal, both eyes and all related structures Neck Neck: normal visual inspection, no lymphadenopathy and supple Thyroid: thyroid normal Chest Chest palpation & inspection: normal inspection of the chest Breast inspection: normal inspection of the breasts and normal inspection of the axillae Breast palpation: normal palpation of the breasts and normal palpation of the axillae Resp Effort & Inspection: normal respiratory effort GI Inspection: normal to inspection Palpation: soft and no hepatosplenomegaly General: bladder normal to palpation External Female Exam: normal external appearance and normal appearance of the urethra Urethra: normal appearance of the urethra Speculum Exam - Vagina: normal appearance of the vagina and normal vaginal discharge Speculum Exam - Cervix: normal appearance of the cervix Bimanual Exam- Vagina & Uterus: normal bimanual exam, bladder normal to palpation, non-tender and other Bimanual Exam- Adnexa, other: non-tender Skin General: no rashes or lesions noted Neuro Motor: muscle tone normal throughout and no movement abnormalities noted Extrem General: normal to inspection and full ROM Supplemental Info [facility] [place] given and patient encouraged to read about nutrition, exercise, weight gain, and food avoidance in . 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 [facility] [place] offered to patient. Discussed routine and specially indicated labs if needed- patient consents to testing. See problem list details for plan information. Optional screening including maternal carrier screenings, neural tube defect screening, genetic screening options including quad screen, nuchal translucency, sequential screening, and NIPT screening offered to patient and patient chose: desires NIPT only 03/04/25 1111 e Velde DO> Date _ Del[facility] Signature: Date (if applicable) CC: ~ [facility]07-22-2025 Chief complaint+Reason for visit Narrative* Chief Complaint Admit Date PNOB Vitals, Education February 26, 2025 1 0:51am *NEW* NOB LMP 5/9, JENIFER 09/20March 04, 2 025 10:31am Reason for Visit Admit Date Learning difficulty due to cognitive guillermo itations February 26, 2025 10:51am February 26, 2025 10:5 1am Supervision of normal February 10:51am Learning difficulty due to cognitive guillermo itations March 04, 2025 10:31am March 04, 2025 10:3 1am Supervision of normal February 10:31am [facility] Work Phone: [phone]) [phone] Chief complaint+Reason for visit Narrative * Chief Complaint Admit Date PNOB Vitals, Education February 26, 2025 1 0:51am *NEW* NOB LMP 5/9, JENIFER 09/20March 04, 2 025 10:31am 15wk OB April 03, 2025 3: 49pm Reason for Visit Admit Date Learning difficulty due to cognitive guillermo itations February 26, 2025 10:51am February 26, 2025 10:5 1am Supervision of normal February 10:51am Learning difficulty due to cognitive guillermo itations March 04, 2025 10:31am March 04, 2025 10:3 1am Supervision of normal February 10:31am Learning difficulty due to cognitive guillermo itations April 03, 2025 3:49pm April 03, 2025 3: 49pm Supervision of normal March 092024 3:49pm UTI in April 03, 2025 3: 49pm [facility] Work Phone: 1(821) 696-971907-22-2025 Chief complaint+Reason for visit Narrative * Chief Complaint Admit Date PNOB Vitals, Education February 26, 2025 1 0:51am *NEW* NOB LMP 5/9, JENIFER 09/20March 04, 2 025 10:31am 15wk OB April 03, 2025 3: 49pm 19wk OB April 30, 2025 9:37am Reason for Visit Admit Date Learning difficulty due to cognitive guillermo itations February 26, 2025 10:51am February 26, 2025 10:5 1am Supervision of normal February 10:51am Learning difficulty due to cognitive guillermo itations March 04, 2025 10:31am March 04, 2025 10:3 1am Supervision of normal February 10:31am Learning difficulty due to cognitive guillermo itations April 03, 2025 3:49pm April 03, 2025 3: 49pm Supervision of normal March 092024 3:49pm UTI in April 03, 2025 3: 49pm Learning difficulty due to cognitive guillermo itations April 30, 2025 9:37am April 30, 2025 9:37am [facility] 9:37am UTI in April 30, 2025 9:37am [facility] Work Phone: 1(953) 133-584307-22-2025 Chief complaint+Reason for visit Narrative * Chief Complaint Admit Date PNOB Vitals, Education February 26, 2025 1 0:51am *NEW* NOB LMP 5/9, JENIFER 09/20March 04, 2 025 10:31am 15wk OB April 03, 2025 3: 49pm 19wk OB April 30, 2025 9:37am 23w 4d ob May 28, 2025 1 1:24am Reason for Visit Admit Date Learning difficulty due to cognitive guillermo itations February 26, 2025 10:51am February 26, 2025 10:5 1am Supervision of normal February 10:51am Learning difficulty due to cognitive guillermo itations March 04, 2025 10:31am March 04, 2025 10:3 1am Supervision of normal February 10:31am Learning difficulty due to cognitive guillermo itations April 03, 2025 3:49pm April 03, 2025 3: 49pm Supervision of normal March 092024 3:49pm UTI in April 03, 2025 3: 49pm Learning difficulty due to cognitive guillermo itations April 30, 2025 9:37am April 30, 2025 9:37am Supervision of normal Septembe r 2024 9:37am UTI in April 30, 2025 9:37am Learning difficulty due to cognitive guillermo itations May 28, 2025 11:24am May 28, 2025 1 1:24am Pyelectasis of fetus on ultraso und May 28, 2025 11:24am Supervision of normal May 28, 2025 11:24am UTI in May 28, 2025 1 1:24am [facility] Work Phone: 1(234) 250-666807-22-2025 Evaluation note* Diagnosis Onset Date Resolution Status Admit Date 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 acute February 26, 2025 10:51am acute February 26 10:51am Supervision of normal acut e February 26, 2025 10:51am 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 acute March 04, 2025 10:31am acute March 04 10:31am Supervision of normal acut e March 04, 2025 10:31am [facility] Work Phone: 1(909) 421-638307-22-2025 Evaluation note* Diagnosis Onset Date Resolution Status Admit Date 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 acute February 26, 2025 10:51am acute February 26 10:51am Supervision of normal acut e February 26, 2025 10:51am 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 acute March 04, 2025 10:31am acute March 04 10:31am Supervision of normal acut e March 04, 2025 10:31am 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 acute March 3:49pm acute April 03, 2 025 3:49pm Supervision of normal acut e April 03, 2025 3:49pm UTI in acute March 092024 3:49pm [facility] Work Phone: 1([phone]) 738-976507-22-2025 Evaluation note* Diagnosis Onset Date Resolution Status Admit Date 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 acute February 26, 2025 10:51am acute February 26 10:51am Supervision of normal acute February 26, 2025 10:51am 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 acute March 04, 2025 10:31am acute March 04 10:31am Supervision of normal acute March 04, 2025 10:31am 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 acute March 3:49pm acute April 03 3:49pm Supervision of normal acute April 03 3:49pm UTI in acute March 092024 3:49pm 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 acute April 30, 2025 9:37am acute April 9:37am Supervision of normal acute April 30, 2025 9:37am UTI in acute 2024 9:37am [facility] Work Phone: 1(625) 602-556907-22-2025 Evaluation note* Diagnosis Onset Date Resolution Status Admit Date 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 acute February 26, 2025 10:51am acute February 26 10:51am Supervision of normal acute February 26, 2025 10:51am 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 acute March 04, 2025 10:31am acute March 04 10:31am Supervision of normal acute March 04, 2025 10:31am 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 acute March 3:49pm acute April 03, 3:49pm Supervision of normal acute April 03 3:49pm UTI in acute March 092024 3:49pm 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 Author Type: Physician Type: Progress Notes Filed: 06/06/2023 10:56 AM Note Text: Patient presents with: Sinus Problem: sinus pressure, drainage, cough x 3 days HPI: Feeling sick for 4 days. Positive symptoms: Cough, wheezing and Shortness of breath yesterday, sleep disturbance from cough, Sinus pressure, Nasal Congestion, Rhinorrhea, resolved sore throat Negative symptoms: Fever, Vomiting, Diarrhea, OTC: Cold Medicine Home COVID test negative. No past history of asthma or pneumonia. MEDICATIONS: No current outpatient medications on file. No current facility-administered medications for this visit. ALLERGIES: ALLERGIES No Known Allergies VITALS: BP 120/72 Pulse 108 Temp 36.8 ?C (98.2 ?F) Resp 18 Wt 71.2 kg (157 lb) LMP 05/08/2021 SpO2 99% PHYSICAL EXAM: GEN: mildly ill appearing. Accompanied by her mother. HEENT: PERRL, EOMI, conjunctiva clear Ears: canals with distal soft cerumen Visible TMs without erythema, bulge, or effusion Nose: congested Throat: moist mucous membranes, mild erythema, no exudate Neck: supple, no thyromegaly, no lymphadenopathy HEART: regular rate and rhythm during my exam, no murmurs LUNGS: clear to auscultation, no wheezes or crackles, no increased WOB ASSESSMENT/PLAN: 1. Acute cough - ICD9: 786.2, ICD10: R05.1 - suspect viral URI - Discussed supportive care treatment with rest, cold medicine, and analgesia. - COVID NAAT, UPPER RESPIRATORY, ROUTINE - would like to confirm. - BENZONATATE 100 MG CAPSULE Luis Foster [facility]10-30-2023 History of Present illness Narrative* Luis Foster MD - 06/06/2023 10:39 AM EDT Patient presents with: Sinus Problem: sinus pressure, drainage, cough x 3 days HPI: Feeling sick for 4 days. Positive symptoms: Cough, wheezing and Shortness of breath yesterday, sleep disturbance from cough,Sinus pressure, Nasal Congestion, Rhinorrhea, resolved sore throat Negative symptoms: Fever, Vomiting, Diarrhea, OTC: Cold Medicine Home COVID test negative. No past history of asthma or pneumonia. MEDICATIONS: No current outpatient medications on file. No current facility-administered medications for this visit. ALLERGIES: ALLERGIES No Known Allergies VITALS: BP 120/72 Pulse 108 Temp 36.8 C (98.2 F) Resp 18 Wt 71.2 kg (157 lb) LMP 05/08/2021 SpO2 99% PHYSICAL EXAM: GEN: mildly ill appearing. Accompanied by her mother. HEENT: PERRL, EOMI, conjunctiva clear Ears: canals with distal soft cerumen Visible TMs without erythema, bulge, or effusion Nose: congested Throat: moist mucous membranes, mild erythema, no exudate Neck: supple, no thyromegaly, no lymphadenopathy HEART: regular rate and rhythm during my exam, no murmurs LUNGS: clear to auscultation, no wheezes or crackles, no increased WOB ASSESSMENT/PLAN: 1. Acute cough - ICD9: 786.2, ICD10: R05.1 - suspect viral URI - Discussed supportive care treatment with rest, cold medicine, and analgesia. - COVID NAAT, UPPER RESPIRATORY, ROUTINE - would like to confirm. - BENZONATATE 100 MG CAPSULE Luis Foster MD documented [facility] complaint+Reason for visit Narrative* Chief Complaint Admit Date PNOB Vitals, Education February 26, 2025 1 0:51am [facility] Work Phone: Evaluation note* Diagnosis Acute cough- Primary documented in this encounter [facility] noteNo assessment information availableBlMarian Regional Medical Center Work Phone: Progress note Author Delaney Moreno [facility] Note Date/Time March 04, 2025 11:1 1am [facility] [address], [address] [place] [address] OFFICE VISIT Date of Service: 03/04/25 MR#: [id number] Acct: [id number] Name: DANIEL HODGSON ep #: [id number] : 2005 Provider: Dr. Sarah Cordova DO Age/Sex: 20/F [place] [facility] [place] Status: Signed Intake Vital Signs 06/27/24 21:03 02/26/25 11:42 03/04/25 10:34 Height 5 ft 1 in 5 ft 1 in 5 ft 1 in Weight: 139 lb BMI 26.2 BP 120/80 Intake Visit Reasons: *NEW* NOB LMP 12/14, JENIFER 09/20 Site Promotion Agent Required: No Is patient in pain?: No Allergies No Known Allergies Allergy (Verified 03/04/25 10:35) Medications ?Medication ?Instructions ?Recorded ?Confirmed ?Type docosahexaenoic acid 200 mg mg PO 02/26/25 03/04/25 Hi story capsule ( DHA) Last Menstrual Period: 12/14/24 Zika: Zika virus screening: Negative : No PFSH PFSH Family History Sister Queta's disease Thyroid disorder Grandfather Diabetes Heart disease Grandmother Diabetes Congestive heart failure Grandfather Diabetes Grandmother Lung cancer Liver cancer Brain cancer Aunt Migraines Mother Asthma Migraines Aunt Multiple sclerosis Social History adopted: No household members: family and other details: Mom & Dad, Grandfather, Sister number of children: 0 current occupational status: unemployed current occupational exposures/hazards: No pets and animals: Yes pets and animals: cat(s) and dog(s) history of recent travel: No sexually active: Yes Smoking Status: Never smoker second hand exposure: Yes (BF's family smokes) alcohol intake: never substance use type: does not use well-balanced diet: about half the time caffeine: No eating out: 1-3 times/week during the past year weight has: remained stable what type of physical activity do you participate in: none mey/buddhist: None seatbelt use: always do you feel safe at home: Yes additional social history: BF: Trevous - unemployed History 0 Elective abortions 0 Hx Para Spontaneous abortions 0 Hx # Term Pregnancies Ectopic pregnancies Hx # Pregnancies Multiple births # of living children HPI *NEW* NOB LMP 12/14, JENFIER 09/20 Details: DANIEL HODGSON is a 20 year old who presents for New OB visit. OB Visit JENIFER Calculator Estimated Delivery Date Method Current WG Current Estimate 09/20/25 LMP (Certain) 11w 3d Estimated Due Date: 09/20/25 Expected Delivery Route/Plan Labor Preferences- CB/BF classes: discussed - labor support person: [] labor intervention preferences: [] pain management options preferred: [] cut cord/dad catch: [] : [] PP control planned: [] discussed possible routes of delivery and associated risks: [] special requests: [] Specific Issue/Plans Covid status: unvaccinated Flu vaccine: unvaccinated Tdap vaccine: [] Rhogam: [] LARC form signed: [] Problem list reviewed and updated with the most current plan of care details and appropriate orders placed. Relevant counseling for the gestational age provided. Continue routine care and follow up unless otherwise noted in visit notes/problem list details Initial Weight: 139 lb Date -?-?-?-?-?-?-?-?-?-?-?-?- EGA Weight BP Urine Prot -?-?-?-?-?-?-?-?-?-?-?-?- Glucose FHR FuHt Pres Dilation -?-?-?-?-?-?-?-?-?-?-?-?- Effaced St Visit Note 03/04/25 -?-?-?-?-?-?-?-?-?-?-?-?- 11w 3d 139 lb (+0 oz) 120/80 -?-?-?-?-?-?-?-?-?-?-?-?- -?-?-?-?-?-?-?-?-?-?-?-?- JV- CRL consiten t with LMP, had early us with [facility]. desires NIPT without carrier testing. Menstrual History Last Menstrual Period: 12/14/24 Reported LMP: definite Normal amount/duration: Yes Frequency in days: 28 On hormonal BC at conception: No hCG+: 02/10/25 Antepartum Record Genetic Screening: Congenital Heart Defect: Other, Neural Tube Defect: Other, Hemoglobinopathy Or Carrier: Other, Cystic Fibrosis: Other, Chromosome Abnormality: Other, Davis-Sachs: Other, Hemophilia: Other, Intellectual Disability/Autism: Other, Recurrent Loss/Stillbirth: Other, Other Structural Defect: Other, Other Genetic Disease: Other and Maternal Metabolic Disorder: Other Infection History: Live with someone with TB or Exposed to TB: No, Patient or Partner has history of Genital Herpes: No, Rash or Viral illness since last mentrual period: No, Prior GBS-Infected child: No, History of STD: No, HIV Infection: No, History of Hepatitis: No, Recent travel outside of [place]: No, Concern for hepatitis exposure: No, Varicella immune: Yes (Had chicken pox) and Covid Vaccinated: No Medical History Medical History: Negative: Diabetes, Hypertension, Heart disease, Auto-immune disorder, Kidney disease/UTI, Neurologic/epilepsy, Psychiatric, Depression/ depression, Hepatitis/liver disease, Varicosities/phlebitis, Thyroid dysfunction, Trauma/domestic violence, History of blood transfusions, D (Rh) Sensitized, Pulmonary (e.g.,TB,Asthma), Seasonal allergies, Drug/latex allergies/reactions, Breast, Polysomnograph Tech surgery, Operations/hospitalizations, Anesthetic complications, History of abnormal pap, Uterine anomaly/norah, Infertility, Anti-retroviral treatment, Relevant family history and Other ACOG First Trimester First Trimester: Desire for , Alcohol, Tobacco Cessation, Illicit/Recreational Drug/Substance Use, Intimate Partner Violence, Barriers to care, Unstable Housing, Communication Barriers, Environmental/Work Hazards, Anticipated Course of Care, Toxoplasmosis Precations, Use of Any medications, Sexual activity, Exercise, Dental Care, Sauna/Hot tub use, Seat Belt use, Childbirth classes/Hospital facilities, Travel, Indications for Ultrasound and Screening for Aneuploidy; Discussed ROS Const Reports system reviewed and no additional complaints, except as documented, Reports fatigue and Denies fever(s) Eyes Reports system reviewed and no additional complaints, except as documented ENT Reports system reviewed and no additional complaints, except as documented Card Denies chest pain and Denies dyspnea Resp Reports system reviewed and no additional complaints, except as documented, Denies cough and Denies dyspnea GI Denies abdominal pain and Reports nausea Reports system reviewed and no additional complaints, except as documented Musc Reports system reviewed and no additional complaints, except as documented Skin/Breast Reports system reviewed and no additional complaints, except as documented Neuro Yes system reviewed and no additional complaints, except as documented Psych Reports system reviewed and no additional complaints, except as documented Endo Reports system reviewed and no additional complaints, except as documented and Reports fatigue Exam Const General: healthy appearing, comfortable and no acute distress Orientation: alert [facility] Head: normal to inspection, normocephalic and atraumatic Ears: hearing grossly normal bilaterally and external ears normal Nose: external nose normal and nares normal Mouth: oral mucosae normal Teeth and gingiva: dentition normal Eyes General: appearance normal, both eyes and all related structures Neck Neck: normal visual inspection, no lymphadenopathy and supple Thyroid: thyroid normal Chest Chest palpation & inspection: normal inspection of the chest Breast inspection: normal inspection of the breasts and normal inspection of the axillae Breast palpation: normal palpation of the breasts and normal palpation of the axillae Resp Effort & Inspection: normal respiratory effort GI Inspection: normal to inspection Palpation: soft and no hepatosplenomegaly General: bladder normal to palpation External Female Exam: normal external appearance and normal appearance of the urethra Urethra: normal appearance of the urethra Speculum Exam - Vagina: normal appearance of the vagina and normal vaginal discharge Speculum Exam - Cervix: normal appearance of the cervix Bimanual Exam- Vagina & Uterus: normal bimanual exam, bladder normal to palpation, non-tender and other Bimanual Exam- Adnexa, other: non-tender Skin General: no rashes or lesions noted Neuro Motor: muscle tone normal throughout and no movement abnormalities noted Extrem General: normal to inspection and full ROM Supplemental Info ACOG book given and patient encouraged to read about nutrition, exercise, weight gain, and food avoidance in . 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 ACOG book offered to patient. Discussed routine and specially indicated labs if needed- patient consents to testing. See problem list details for plan information. Optional screening including maternal carrier screenings, neural tube defect screening, genetic screening options including quad screen, nuchal translucency, sequential screening, and NIPT screening offered to patient and patient chose: desires NIPT only 03/04/25 1111 <Electronically signed by Delaney Foote DO> Date _ Delaney Cordova DO Cosigner Signature: Date (if applicable) CC: ~ [facility] Work Phone: Progress note Author Mary Ellen Cortez [facility] Note Date/Time April 30, 2025 9:54am [facility] [address] [place] [address], [address] [place] [address] OFFICE VISIT Date of Service: 04/30/25 MR#: [id number] Acct: [id number] Name: DANIEL HODGSON ep #: [id number] : 2005 Provider: CAROLE Toro Age/Sex: 20/F Location[place] [facility] [place] Status: Signed Intake Vital Signs 06/27/24 21:03 04/03/25 16:01 04/30/25 09:41 Height 5 ft 1 in 5 ft 1 in 5 ft 1 in Weight: 141 lb 7 oz BMI 26.7 BP 118/76 Intake Visit Reasons: 19wk OB Chief Complaint: 19wk OB Site Promotion Agent Required: No Is patient in pain?: No Allergies No Known Allergies Allergy (Verified 04/30/25 09:38) Medications ?Medication ?Instructions ?Recorded ?Confirmed ?Type docosahexaenoic acid 200 mg mg PO 02/26/25 04/30/25 Hi story capsule ( DHA) ondansetron 4 mg disintegrating 4 mg PO Q6H PRN nausea and 03/19/25 04/30/25 Rx tablet vomiting #30 tabs Last Menstrual Period: 12/14/24 : No PFSH PFSH Family History Sister Queta's disease Thyroid disorder Grandfather Diabetes Heart disease Grandmother Diabetes Congestive heart failure Grandfather Diabetes Grandmother Lung cancer Liver cancer Brain cancer Aunt Migraines Mother Asthma Migraines Aunt Multiple sclerosis Social History adopted: No household members: family and other details: Mom & Dad, Grandfather, Sister number of children: 0 current occupational status: unemployed current occupational exposures/hazards: No pets and animals: Yes pets and animals: cat(s) and dog(s) history of recent travel: No sexually active: Yes Smoking Status: Never smoker second hand exposure: Yes (BF's family smokes) alcohol intake: never substance use type: does not use well-balanced diet: about half the time caffeine: No eating out: 1-3 times/week during the past year weight has: remained stable what type of physical activity do you participate in: none mey/buddhist: None seatbelt use: always do you feel safe at home: Yes additional social history: BF: Trevous - unemployed History 0 Elective abortions 0 Hx Para Spontaneous abortions 0 Hx # Term Pregnancies Ectopic pregnancies Hx # Pregnancies Multiple births # of living children HPI 19wk OB Details: DANIEL HODGSON is a 20 year old who presents for routine OB visit. OB Visit JENIFER Calculator Estimated Delivery Date Method Current WG Current Estimate 09/20/25 LMP (Certain) 19w 4d Other Estimates 09/17/25 Ultrasound #1 20w 0d Expected Delivery Route/Plan Labor Preferences- CB/BF classes: discussed - labor support person: [] labor intervention preferences: [] pain management options preferred: [] cut cord/dad catch: [] : [] PP control planned: [] discussed possible routes of delivery and associated risks: [] special requests: [] Specific Issue/Plans Covid status: unvaccinated Flu vaccine: unvaccinated Tdap vaccine: [] Rhogam: [] LARC form signed: [] Problem list reviewed and updated with the most current plan of care details and appropriate orders placed. Relevant counseling for the gestational age provided. Continue routine care and follow up unless otherwise noted in visit notes/problem list details Initial Weight: 139 lb Date -?-?-?-?-?-?-?-?-?-?-?-?- EGA Weight BP Urine Prot -?-?-?-?-?-?-?-?-?-?-?-?- Glucose FHR FuHt Pres Dilation -?-?-?-?-?-?-?-?-?-?-?-?- Effaced St Visit Note 03/04/25 -?-?-?-?-?-?-?-?-?-?-?-?- 11w 3d 139 lb (+0 oz) 120/80 -?-?-?-?-?-?-?-?-?-?-?-?- -?-?-?-?-?-?-?-?-?-?-?-?- JV- CRL consiten t with LMP, had early us with [facility]. desires NIPT without carrier testing. 04/03/25 -?-?-?-?-?-?-?-?-?-?-?-?- 15w 5d 142 lb 9 oz (+3 lb 9 oz) 104/55 -?-?-?-?-?-?-?-?-?-?-?-?- 144 -?-?-?-?-?-?-?-?-?-?-?-?- JV- low risks NI PT boy, Gareth) JV- low risks NIPT boy, Marcie t) Her mom here with her is concerned about her boyfriend's parents smoking weed around her. we discussed keeping a safe distance in a ventilated area. 04/30/25 -?-?-?-?-?-?-?-?-?--?-?-?- 19w 4d 141 lb 7 oz (+2 lb 7 oz) 118/76 -?-?-?-?-?-?-?-?-?-?-?-?- 145 -?-?-?-?-?-?-?-?-?-?-?-?- KW- no vb/lof. s ome flutters. has anatomy US scheduled. ACOG First Trimester First Trimester: Desire for , Alcohol, Tobacco Cessation, Illicit/Recreational Drug/Substance Use, Intimate Partner Violence, Barriers to care, Unstable Housing, Communication Barriers, Environmental/Work Hazards, Anticipated Course of Care, Toxoplasmosis Precations, Use of Any medications, Sexual activity, Exercise, Dental Care, Sauna/Hot tub use, Seat Belt use, Childbirth classes/Hospital facilities, Travel, Indications for Ultrasound and Screening for Aneuploidy; Discussed ROS Const Reports system reviewed and no additional complaints, except as documented Eyes Reports system reviewed and no additional complaints, except as documented ENT Reports system reviewed and no additional complaints, except as documented Card Reports system reviewed and no additional complaints, except as documented Resp Reports system reviewed and no additional complaints, except as documented GI Reports system reviewed and no additional complaints, except as documented, Denies nausea and Denies vomiting Reports system reviewed and no additional complaints, except as documented Musc Reports system reviewed and no additional complaints, except as documented Skin/Breast Reports system reviewed and no additional complaints, except as documented Neuro Yes system reviewed and no additional complaints, except as documented Psych Reports system reviewed and no additional complaints, except as documented Endo Reports system reviewed and no additional complaints, except as documented Aguilar/Lymph Reports system reviewed and no additional complaints, except as documented Aller/Immun Reports system reviewed and no additional complaints, except as documented Exam Const General: cooperative, healthy appearing and no acute distress Orientation: alert, awake and oriented x3 Neck Neck: normal visual inspection and full ROM Resp Effort & Inspection: normal respiratory effort, able to speak in complete sentences and symmetric chest movement GI Inspection: normal to inspection Palpation: soft and other Other: gravid Skin General: no rashes or lesions noted Neuro General: patient alert, patient awake and patient oriented x3 Cognition: normal cognition Speech: speech normal Gait: normal gait Motor: muscle tone normal throughout Extrem General: normal to inspection and full ROM Psych Appearance: grossly normal Mental Status: mental status grossly normal Mood: congruent mood Affect: normal affect Speech and Movement: speech and movement normal Attitude: cooperative Thought Process: normal Thought Content: normal Judgment: judgment good Coding Level of Care Code OB Routine Diagnoses UTI in O23.40 Supervision of normal Z34.90 19 weeks gestation of Z3A.19 Weeks of gestation: 19 weeks 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 Rpt culture next visit. 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 see problem list details for updated plan management information and see below for orders placed at this visit. GA appropriate handout given. 04/30/25 8927 <Electronically signed by Mary Ellen toussaint CNM> Date _ Mary Ellen Toro CNM Cosigner Signature: Date (if applicable) CC: ~ [facility] Work Phone: Progress note Author Delaney Moreno [facility] Note Date/Time May 28, 2025 1 2:44pm [facility] [address] [place] [address], [address] [place] [address] OFFICE VISIT Date of Service: 05/28/25 MR#: [id number] Acct: [id number] Name: DANIEL HODGSON MYA fonseca #: [id number] : 2005 Provider: Dr. Sarah Cordova DO Age/Sex: 20/F [place] [facility] [place] Status: Signed Intake Vital Signs 03/04/25 10:34 04/30/25 09:41 05/28/25 11:26 05/28/25 11:27 Height 5 ft 1 in 5 ft 1 in 5 ft 1 in 5 ft 1 in Weight: 141 lb 9 oz BMI 26.7 BP 117/75 Intake Visit Reasons: 23w 4d ob Site Promotion Agent Required: No Is patient in pain?: No Allergies No Known Allergies Allergy (Verified 05/28/25 11:26) Medications ?Medication ?Instructions ?Recorded ?Confirmed ?Type docosahexaenoic acid 200 mg mg PO 02/26/25 05/28/25 Hi story capsule ( DHA) ondansetron 4 mg disintegrating 4 mg PO Q6H PRN nausea and 03/19/25 05/28/25 Rx tablet vomiting #30 tabs Last Menstrual Period: 12/14/24 Zika: Zika virus screening: Negative : No PFSH PFSH Family History Sister Queta's disease Thyroid disorder Grandfather Diabetes Heart disease Grandmother Diabetes Congestive heart failure Grandfather Diabetes Grandmother Lung cancer Liver cancer Brain cancer Aunt Migraines Mother Asthma Migraines Aunt Multiple sclerosis Social History adopted: No household members: family and other details: Mom & Dad, Grandfather, Sister number of children: 0 current occupational status: unemployed current occupational exposures/hazards: No pets and animals: Yes pets and animals: cat(s) and dog(s) history of recent travel: No sexually active: Yes Smoking Status: Never smoker second hand exposure: Yes (BF's family smokes) alcohol intake: never substance use type: does not use well-balanced diet: about half the time caffeine: No eating out: 1-3 times/week during the past year weight has: remained stable what type of physical activity do you participate in: none mey/buddhist: None seatbelt use: always do you feel safe at home: Yes additional social history: BF: Trevous - unemployed History 0 Elective abortions 0 Hx Para Spontaneous abortions 0 Hx # Term Pregnancies Ectopic pregnancies Hx # Pregnancies Multiple births # of living children HPI 23w 4d ob Details: DANIEL HODGSON is a 20 year old who presents for routine OB visit. OB Visit JENIFER Calculator Estimated Delivery Date Method Current WG Current Estimate 09/20/25 LMP (Certain) 23w 4d Other Estimates 09/17/25 Ultrasound #1 24w 0d Expected Delivery Route/Plan Labor Preferences- CB/BF classes: discussed - labor support person: [] labor intervention preferences: [] pain management options preferred: [] cut cord/dad catch: [] : [] PP control planned: [] discussed possible routes of delivery and associated risks: [] special requests: [] Specific Issue/Plans Covid status: unvaccinated Flu vaccine: unvaccinated Tdap vaccine: [] Rhogam: [] LARC form signed: [] Problem list reviewed and updated with the most current plan of care details and appropriate orders placed. Relevant counseling for the gestational age provided. Continue routine care and follow up unless otherwise noted in visit notes/problem list details Initial Weight: 139 lb Date -?-?-?-?-?-?-?-?-?-?-?-?- EGA Weight BP Urine Prot -?-?-?-?-?-?-?-?-?-?-?-?- Glucose FHR FuHt Pres Dilation -?-?-?-?-?-?-?-?-?-?-?-?- Effaced St Visit Note 03/04/25 -?-?-?-?-?-?-?-?-?-?-?-?- 11w 3d 139 lb (+0 oz) 120/80 -?-?-?-?-?-?-?-?-?-?-?-?- -?-?-?-?-?-?-?-?-?-?-?-?- JV- CRL consiten t with LMP, had early us with [facility]. desires NIPT without carrier testing. 04/03/25 -?-?-?-?-?-?-?-?-?-?-?-?- 15w 5d 142 lb 9 oz (+3 lb 9 oz) 104/55 -?-?-?-?-?-?-?-?-?-?-?-?- 144 -?-?-?-?-?-?--?-?-?-?-?-?- JV- low risks NI PT boy, Gareth) JV- low risks NIPT boy, Marcie t) Her mom here with her is concerned about her boyfriend's parents smoking weed around her. we discussed keeping a safe distance in a ventilated area. 04/30/25 -?-?-?-?-?-?-?-?-?-?-?-?- 19w 4d 141 lb 7 oz (+2 lb 7 oz) 118/76 -?-?-?-?-?-?-?-?-?-?-?-?- 145 -?-?-?-?-?-?-?-?-?-?-?-?- KW- no vb/lof. s ome flutters. has anatomy US scheduled. 05/28/25 -?-?-?-?-?-?-?-?-?-?-?-?- 23w 4d 141 lb 9 oz (+2 lb 9 oz) 117/75 Negative -?-?-?-?-?-?-?-?-?-?-?-?- Negative 135 -?-?-?-?-?-?-?-?-?-?-?-?- JV- no lof, vagi nal bleeding and + FM. declines flu shot. has 2nd cousin with CF that was just diagnosed. plan to check horizon test with GCT next visit. has anatomy follow on 07/01 to look at kidneys. ACOG First Trimester First Trimester: Desire for , Alcohol, Tobacco Cessation, Illicit/Recreational Drug/Substance Use, Intimate Partner Violence, Barriers to care, Unstable Housing, Communication Barriers, Environmental/Work Hazards, Anticipated Course of Care, Toxoplasmosis Precations, Use of Any medications, Sexual activity, Exercise, Dental Care, Sauna/Hot tub use, Seat Belt use, Childbirth classes/Hospital facilities, Travel, Indications for Ultrasound and Screening for Aneuploidy; Discussed Results POC Urinalysis 2 Dip (Clinic) Office Urine Glucose Negative Last Edit by Lee Ann Benz on 05/28/25 11: 40 Office Urine Protein Negative Last Edit by Lee Ann Benz on 05/28/25 11: 40 Coding Level of Care Code OB Routine Diagnoses Pyelectasis of fetus on ultrasound O35.EXX0 UTI in O23.40 Supervision of normal Z34.90 23 weeks gestation of Z3A.23 Weeks of gestation: 23 weeks 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 Orders: Orders POC Urinalysis 2 Dip (Clinic) Today CBC W/Diff, Automated Today Z34.90 - Encounter for supervision of normal , unspecified, unspecified trimester Glucose Challenge Gest 1H 50g Today Z13.1 - Encounter for screening for diabetes mellitus, Z34.90 - Encounter for supervision of normal , unspecified, unspecified trimester HIV Today Z34.90 - Encounter for supervision of normal , unspecified, unspecified trimester Syphilis Antibodies Today Z34.90 - Encounter for supervision of normal , unspecified, unspecified trimester 05/28/25 1144 <Electronically signed by Delaney Foote DO> Date _ Delaney Cordova DO Cosigner Signature: Date (if applicable) CC: ~ [facility] Work Phone: Reason for referral (narrative)No reason for referral information availableCottage Children'S Hospital Work Phone: Summary Purpose Family History No Family History Records Found Relationship Condition Age at Onset Recorded Date/T nico sister Queta's thyroiditis Unknown Disorder of thyroid Unknown grandfather Diabetes mellitus Unknown Cardiac disease Unknown grandmother Diabetes mellitus Unknown Congestive heart failure Unknown grandmother Malignant neoplasm of lung Unknown Malignant neoplasm of liver Unknown Malignant neoplasm of brain Unknown aunt Migraine headache Unknown mother Asthma Unknown Migraine headache Unknown aunt Multiple sclerosis Unknown Advance Directives No Advanced Directives Records FoundNo Advanced Directives Records FoundNo Advanced Directives Records Found Additional Source Comments Source Comments (unrecognize d section and content) In the event this informatio n is protected by the Federal Confidentiality of Alcohol and Drug Abuse Patient Records regulations: The Federal rules restrict any use of the information to criminally investigate or prosecute any alcohol or drug abuse patient.[facility] Reason for Visit (unrecogniz ed section and content) Reason Comments Sinus Problem sinus pressure, drai nage, cough x 3 days Care Teams (unrecognized sec tion and content) Legal Billing Coordinator Relationship Specialty Start Date End Date José Miguel Osorio MD [address] [place] [address] PCP - General Pediatrics 06/28/11 Team Status: Active Member Role/Relationship Status Dates Dr. José Miguel Osorio MD Family Provider Active Dr. José Miguel Osorio MD Primary Care Provider Active Team Status: Inactive Member Role/Relationship Status Dates Dr. José Miguel Osorio MD Primary Care Provider Active Start: February 26, 2025 End: February 26, 2025 Dr. José Miguel Osorio MD Referring Provider Active Start: February 26, 2025 End: February 26, 2025 Dr. Rosaline Hansen MD Attending Provider Active Start: February 26, 2025 End: February 26, 2025 Team Status: Inactive Member Role/Relationship Status Dates Dr. José Miguel Osorio MD Primary Care Provider Active Start: March 04, 2025 End: March 04, 2025 Dr. José Miguel Osorio MD Referring Provider Active Start: March 04, 2025 End: March 04, 2025 Dr. Delaney Cordova DO Attending Provider Activ e Start: March 04, 2025 End: March 04, 2025 Team Status: Active Member Role/Relationship Status Dates Dr. José Miguel Osorio MD Primary Care Provider Active Start: March 04, 2025 Dr. Delaney Cordova DO Attending Provider Activ e Start: March 04, 2025 Team Status: Inactive Member Role/Relationship Status Dates Dr. José Miguel Osorio MD Primary Care Provider Active Start: March 04, 2025 End: March 04, 2025 Dr. Delaney Cordova DO Attending Provider Activ e Start: March 04, 2025 End: March 04, 2025 Team Status: Inactive Member Role/Relationship Status Dates Dr. José Miguel Osorio MD Primary Care Provider Active Start: April 03, 2025 End: April 03, 2025 Dr. José Migeul Osorio MD Referring Provider Active Start: April 03, 2025 End: April 03, 2025 Dr. Delaney Cordova DO Attending Provider Activ e Start: April 03, 2025 End: April 03, 2025 Team Status: Active Member Role/Relationship Status Dates Dr. José Miguel Osorio MD Primary care physician Active Team Status: Inactive Member Role/Relationship Status Dates Dr. José Miguel Osorio MD Primary care physician Active Start: February 26, 2025 End: February 26, 2025 Dr. José Miguel Osorio MD Referring Provider Active Start: February 26, 2025 End: February 26, 2025 Dr. Rosaline Hansen MD Attending physician Active Start: February 26, 2025 End: February 26, 2025 Team Status: Inactive Member Role/Relationship Status Dates Dr. José Miguel Osorio MD Primary care physician Active Start: March 04, 2025 End: March 04, 2025 Dr. José Miguel Osorio MD Referring Provider Active Start: March 04, 2025 End: March 04, 2025 Dr. Delaney Cordova DO Attending physician Acti ve Start: March 04, 2025 End: March 04, 2025 Team Status: Inactive Member Role/Relationship Status Dates Dr. José Miguel Osorio MD Primary care physician Active Start: March 04, 2025 End: March 04, 2025 Dr. Delaney Cordova DO Attending physician Acti ve Start: March 04, 2025 End: March 04, 2025 Team Status: Inactive Member Role/Relationship Status Dates Dr. José Miguel Osorio MD Primary care physician Active Start: April 03, 2025 End: April 03, 2025 Dr. José Miguel Osorio MD Referring Provider Active Start: April 03, 2025 End: April 03, 2025 Dr. Delaney Cordova DO Attending physician Acti ve Start: April 03, 2025 End: April 03, 2025 Team Status: Inactive Member Role/Relationship Status Dates Dr. José Miguel Osorio MD Primary care physician Active Start: April 30, 2025 End: April 30, 2025 Dr. José Miguel Osorio MD Referring Provider Active Start: April 30, 2025 End: April 30, 2025 Mary Ellen Toro CNM Attending physician Active Start: April 30, 2025 End: April 30, 2025 Team Status: Inactive Member Role/Relationship Status Dates Dr. José Miguel Osorio MD Primary care physician Active Start: April 30, 2025 End: April 30, 2025 Dr. Delaney Cordova DO Attending physician Active Start: April End: April 30, 2025 Team Status: Inactive Member Role/Relationship Status Dates Dr. José Miguel Osorio MD Primary care physician Active Start: May 28, 2025 End: May 28, 2025 Dr. José Miguel Osorio MD Referring Provider Active Start: May 28, 2025 End: May 28, 2025 Dr. Delaney Cordova DO Attending physician Acti ve Start: May 28, 2025 End: May 28, 2025 INFORMATION SOURCE (unrecogn ized section and content) DATE CREATED AUTHOR 06/07/2023 [facility] DATE CREATED AUTHOR AUTHOR'S ORGANIZ ATION 05/22/2025 [facility] DATE CREATED AUTHOR AUTHOR'S ORGANIZ ATION 06/19/2025 [facility] Goals (unrecognized section and content) Type Care Experience Labor Preferences-CB /BF classes: discussed - labor support person: []labor intervention preferences: []pain management options preferred: []cut cord/dad catch: []: []PP control planned: []discussed possible routes of delivery and associated risks: []special requests: [] FOR RECORDS PERTAINING TO PATIENTS WHO ARE OR HAVE BEEN ENROLLED IN A CHEMICAL DEPENDENCY/SUBSTANCEABUSE PROGRAM, SOME INFORMATION MAY BE OMITTED. This clinical summary was aggregated from multiple sources. Caution should be exercised in using it in the provision of clinical care. This summary normalizes information from multiple sources, and as a consequence, information in this document may materially change the coding, format and clinical context of patient data. In addition, data may be omitted in some cases. CLINICAL DECISIONS SHOULD BE BASED ON THE PRIMARY CLINICAL RECORDS. [facility] [employer] [facility]. provides no warranty or guarantee of the accuracy or completeness of information in this document.
== END | disposition home or self-care (01) ==
PROVIDERS: Obstetrics & Gynecology; PCP Pediatrics; Visit Provider Obstetrics & Gynecology
DX: Z34.01 Encounter for supervision of normal first pregnancy, first trimester (principal)
CPT/HCPCS: 36415; 82950; 85025; 86703; 86780

== ENCOUNTER 2025-06-24 23:50 | Outpatient (CLI) | payer BC, SELFPAY ==
[2025-06-24 23:58] VITALS: BMI 27.4
--- OUTSIDE RECORDS SUMMARY | 2025-06-24 23:59 | XMS RPT_ITS | CCD ---
Author Organization [facility] CliniSyvt Care Team Providers Care [employer] Tutor Name Role Phone Jo PALUMBO, José Miguel Primary Care Provider Jo PALUMBO, Dr. Gaxiola Primary Care Provider Jo PALUMBO, Dr. Gaxiola Referring Provider Jade PALUMBO, Dr. Waggoner Attending Provider [phone] Dr. Delaney Cordova DO Attending Provider Jo [...] Jo, José Miguel Referring Unavailable Jo, José Imguel Primary Care Unavailable Delaney Cordova Attending Unavailabl [...] Comment on above: Take 1 capsule by [facility] every 8 hours as needed for cough [...] ier testing - undecided elected NIPT with [employer], low risk, gender male, declined carrier testing [...] Moreno on 05-28-2025 Glucose Ql (U) Negative [facility] Laboratory - UrinalysisOrder ed By: Delaney Moreno on 05-28-2025 Protein Ql (U) Negative [facility] Ordnance Engineer Office Visit Reporton 05-28-2025 Ordnance Engineer Office Visit Report [facility]'s [address], [address] [place] [address] OFFICE VISIT Date of Service: 05/28/25 MR#: [id number] Acct: [id number] Name: DANIEL HODGSON Rep #: [id number] : 2005 Provider: Dr. Delaney Rosa DO Age/Sex: 20/F [place] [facility] [place]: Signed Intake Vital Signs 03/04/25 10:34 04/30/25 09:41 05/28/25 11:26 05/28/25 11:27 Height 5 ft 1 in 5 ft 1 in 5 ft 1 in 5 ft 1 in Weight: 141 lb 9 oz BMI 26.7 BP 117/75 Intake Visit Reasons: 23w 4d ob Dairy Manufacturing Technologist Required: No Is patient in pain?: No [...] physical activity do you participate in: none mey/latter day: None seatbelt use: always do you feel [...] itent with LMP, had early us with [facility]. desires NIPT without carrier testing. [...] -???-???-???-???-?? ?-???-???-???- (more content not included)... Normal [facility] Urine Cultureon 05-01-2025 [facility] Culture exhibits no growth. Normal [facility] Comment on above: Performed By: #### M 100.2200 #### [facility] [address] [place], [place], [address] Urine cultureOrdered By: Zabrina Moreno on 05-01-2025 Bacteria identified Cx Nom (U) Culture exhibits no growth. [facility] Ordnance Engineer Office Visit Reporton 04-30-2025 Ordnance Engineer Office Visit Report [facility]'s [address], [address] [place] [address] OFFICE VISIT Date of Service: 04/30/25 MR#: [id number] Acct: [id number] Name: DANIEL HODGSON Rep #: [id number] : 2005 Provider: CAROLE Nixon ams Age/Sex: 20/F [place] [facility] [place] Status: Signed Intake Vital Signs 06/27/24 21:03 04/03/25 16:01 04/30/25 09:41 Height 5 ft 1 in 5 ft 1 in 5 ft 1 in Weight: 141 lb 7 oz BMI 26.7 BP 118/76 Intake Visit Reasons: 19wk OB Chief Complaint: 19wk OB Dairy Manufacturing Technologist Required: No Is patient in pain?: No [...] physical activity do you participate in: none mey/latter day: None seatbelt use: always do you feel [...] Cessation, Illicit/Rec (more content not included)... Normal [facility] Urine cultureOrdered By: Zabrina Moreno on 04-30-2025 Bacteria identified Cx Nom (U) Culture exhibits no growth. [facility] Ordnance Engineer Office Visit Reporton 04-03-2025 Ordnance Engineer Office Visit Report [facility]'[address], [address] [place] [address] OFFICE VISIT Date of Service: 04/03/25 MR#: [id number] Acct: [id number] Name: DANIEL HODGSON Rep #: [id number] : 2005 Provider: Dr. Delaney Rosa DO Age/Sex: 20/F [place] [facility] [place] Status: Signed Intake Vital Signs 06/27/24 21:03 03/04/25 10:34 04/03/25 16:01 Height 5 ft 1 in 5 ft 1 in 5 ft 1 in Weight: 142 lb 9 oz BMI 26.9 BP 104/55 L Intake Visit Reasons: 15wk OB Dairy Manufacturing Technologist Required: No Is patient in pain?: No [...] physical activity do you participate in: none mey/latter day: None seatbelt use: always do you feel [...] itent with LMP, had early us with [facility]. desires NIPT without carrier testing. [...] medications, Sexual (more content not included)... Normal [facility] PAP I-G w/rfx hrHPV-Aptimaon 03-07-2025 ADEQ Comment Normal . [facility] Comment on above: Order Comment: Speci men Comment: [id number] Specimen Comment: No. of containers..01 ThinPrep Vial Result Comment: Sati sfactory for evaluation. No endocervical component is identified. An endocervical component is not commonly seen in the patient. Performed By: #### L 7000.1800, L7400.0353 #### [facility] [address] [place], [address] COMM . Normal . [facility] Comment on above: Order Comment: Speci men Comment: [id number] Specimen Comment: No. of containers..01 ThinPrep Vial Performed By: #### L 7000.1800, L7400.0353 #### [facility] [address] [place], [address] COMMENT Comment Normal . [facility] Comment on above: Order Comment: Speci men Comment: [id number] Specimen Comment: No. of containers..01 ThinPrep Vial Result Comment: This liquid based ThinPrep(R) pap test was screened with the use of an image guided system. Performed By: #### L 7000.1800, L7400.0353 #### [facility] [address] [place], [address] DIAG Comment Normal . [facility] Comment on above: Order Comment: Speci men Comment: [id number] Specimen Comment: No. of containers..01 ThinPrep Vial Result Comment: NEGA TIVE FOR INTRAEPITHELIAL LESION OR MALIGNANCY. Performed By: #### L 7000.1800, L7400.0353 #### [facility] [address] [place], [address] HPV RFLX Comment Normal . [facility] Comment on above: Order Comment: Speci men Comment: [id number] Specimen Comment: No. of containers..01 ThinPrep Vial Result Comment: The HPV DNA reflex criteria were not met with this specimen result therefore, no HPV testing was performed. Performed at: [facility] [employer] [address] [place] [address], [place], [place] [id number] Courtroom Clerk: Mynor Steele MD, Phone: [phone] Performed at: [address] [id number] Courtroom Clerk: Milagros Roque MD, Phone: [phone] Performed By: #### L 7000.1800, L7400.0353 #### [facility] [address] [place], [place], [address] PAPSMR Comment Normal . [facility] Comment on above: Order Comment: Speci men Comment: [id number] Specimen Comment: No. of containers..01 ThinPrep Vial [...] Performed By: #### L 7000.1800, L7400.0353 #### [facility] [address] [place], [place], [address] PERFORM Comment Normal . [facility] Comment on above: Order Comment: Speci men Comment: [id number] Specimen Comment: No. of containers..01 ThinPrep Vial Result Comment: Kate Roldan, Inspector Repairer [place] (ASCP) Performed By: #### L 7000.1800, L7400.0353 #### [facility] [address] [place], [place], [address] Urine Cultureon 03-06-2025 [facility] Escherichia coli [place] Count >100,000 Escherichia coli: REACTION Ampicillin Islt [...] TMP SMX Islt CLEMENCIA <=20 S Normal [facility] Comment on above: Performed By: #### M 100.2200, L509.4006, L3890.6006, L3890.6102, L100.0100, BTS, L509.8002, L3890.6301 ####[facility] [address] [place], [address] Chlamydia/GC RICK aptimaon CHLAMY,NUC ACID Negative Normal Negative [facility] Comment on above: Performed By: #### L 7000.1800, L7400.0353 #### [facility] [address] [place], [place], [id number] GC BY NUC ACID Negative Normal Negative [facility] Comment on above: Result Comment: Perf ormed at: =G - [facility] [address] [id number] Courtroom Clerk: Milagros Roque MD, Phone: [phone] Performed By: #### L 7000.1800, L7400.0353 #### [facility] [address] [place], [place], [address] Absolute lymphocyte countOrd ered By: Rosaline Hansen on 03-04-2025 Lymphocytes Auto (Unsp spec) [#/Vol] 1.31 10*3/uL 0.83-4.51 [facility] Absolute neutrophil countOrd ered By: Rosaline Hansen on 03-04-2025 Neutrophils (Bld) [#/Vol] 3.6 10*3/uL 2.0-7.7 [facility] Automated lymphocyte count a s percentage of total leukocytesOrdered By: Rosaline Hansen on 03-04-2025 Lymphocytes/100 WBC Auto (Unsp spec) 25.2 % 19-41 [facility] Basophil percentageOrdered B y: Rosaline Hansen on 03-04-2025 Basophils/100 WBC (Bld) 0.2 % 0-1 [facility] CBC W/Diff, Automatedon 02-06 Absolute Lymph 1.31 X10 3/uL Normal 0.83-4.51 [facility] Comment on above: Performed By: #### M 100.2200, L509.4006, L3890.6006, L3890.6102, L100.0100, BTS, L509.8002, L3890.6301 #### [facility] [address] [place], [address] Absolute Neut 3.6 X10 3/uL Normal 2.0-7.7 [facility] Comment on above: Performed By: #### M 100.2200, L509.4006, L3890.6006, L3890.6102, L100.0100, BTS, L509.8002, L3890.6301 #### [facility] [address] [place], [address] Basophils/100 WBC (Bld) 0.2 % Normal 0-1 [facility] Comment on above: Performed By: #### M 100.2200, L509.4006, L3890.6006, L3890.6102, L100.0100, BTS, L509.8002, L3890.6301 #### [facility] [address] [place], [address] Eosinophils/100 WBC (Bld) 1.0 % Normal 0-5 [facility] Comment on above: Performed By: #### M 100.2200, L509.4006, L3890.6006, L3890.6102, L100.0100, BTS, L509.8002, L3890.6301 #### [facility] [address] [place], [address] Erythrocyte distribution width (RBC) [Ratio] 11.8 % Normal 11.6-14.6 [facility] Comment on above: Performed By: #### M 100.2200, L509.4006, L3890.6006, L3890.6102, L100.0100, BTS, L509.8002, L3890.6301 #### [facility] [address] [place], [address] Hematocrit (Bld) [Volume fraction] 40.9 % Normal 37-47 [facility] Comment on above: Performed By: #### M 100.2200, L509.4006, L3890.6006, L3890.6102, L100.0100, BTS, L509.8002, L3890.6301 #### [facility] [address] [place], [address] Hemoglobin (Bld) [Mass/Vol] 14.0 g/dL Normal 12.0-15.0 [facility] Comment on above: Performed By: #### M 100.2200, L509.4006, L3890.6006, L3890.6102, L100.0100, BTS, L509.8002, L3890.6301 #### [facility] [address] [place], [address] IG% 0.200 Normal 0.0-0.9 [facility] Comment on above: Result Comment: IG% - Immature Granulocytes (promyelocytes, myelocytes and metamyelocytes) > 1% indicates that a LEFT SHIFT is Present. Performed By: #### M 100.2200, L509.4006, L3890.6006, L3890.6102, L100.0100, BTS, L509.8002, L3890.6301 #### [facility] [address] [place], [address] Lymphocytes/100 WBC (Bld) 25.2 % Normal 19-41 [facility] Comment on above: Performed By: #### M 100.2200, L509.4006, L3890.6006, L3890.6102, L100.0100, BTS, L509.8002, L3890.6301 #### [facility] [address] [place], [address] MCH (RBC) [Entitic mass] 30.4 pg Normal 27.0-32.0 [facility] Comment on above: Performed By: #### M 100.2200, L509.4006, L3890.6006, L3890.6102, L100.0100, BTS, L509.8002, L3890.6301 #### [facility] [address] [place], [address] MCHC (RBC) [Mass/Vol] 34.2 g/dL Normal 32-36 [facility] Comment on above: Performed By: #### M 100.2200, L509.4006, L3890.6006, L3890.6102, L100.0100, BTS, L509.8002, L3890.6301 #### [facility] [address] [place], [address] MCV (RBC) [Entitic vol] 88.9 fL Normal 81-99 [facility] Comment on above: Performed By: #### M 100.2200, L509.4006, L3890.6006, L3890.6102, L100.0100, BTS, L509.8002, L3890.6301 #### [facility] [address] [place], [address] Monocytes/100 WBC (Bld) 4.8 % Normal 0-10 [facility] Comment on above: Performed By: #### M 100.2200, L509.4006, L3890.6006, L3890.6102, L100.0100, BTS, L509.8002, L3890.6301 #### [facility] [address] [place], [address] Neutrophils/100 WBC (Bld) 68.6 % Normal 47-70 [facility] Comment on above: Performed By: #### M 100.2200, L509.4006, L3890.6006, L3890.6102, L100.0100, BTS, L509.8002, L3890.6301 #### [facility] [address] [place], [address] Nucleated RBC (Bld) [#/Vol] 0 10*3/uL Normal 0-5 [facility] Comment on above: Performed By: #### M 100.2200, L509.4006, L3890.6006, L3890.6102, L100.0100, BTS, L509.8002, L3890.6301 #### [facility] [address] [place], [address] Platelet mean volume (Bld) [Entitic vol] 10.3 fL Normal 6.2-12.0 [facility] Comment on above: Performed By: #### M 100.2200, L509.4006, L3890.6006, L3890.6102, L100.0100, BTS, L509.8002, L3890.6301 #### [facility] [address] [place] [place], [address] Platelets (Bld) [#/Vol] 254 10*3/uL Normal 150-450 [facility] Comment on above: Performed By: #### M 100.2200, L509.4006, L3890.6006, L3890.6102, L100.0100, BTS, L509.8002, L3890.6301 #### [facility] [address] [place], [address] RBC (Bld) [#/Vol] 4.60 10*6/uL Normal 4.2-5.4 [facility] Comment on above: Performed By: #### M 100.2200, L509.4006, L3890.6006, L3890.6102, L100.0100, BTS, L509.8002, L3890.6301 #### [facility] [address] [place], [address] RDW SD 37.6 fl Normal 35.1-43.9 [facility] Comment on above: Performed By: #### M 100.2200, L509.4006, L3890.6006, L3890.6102, L100.0100, BTS, L509.8002, L3890.6301 #### [facility] [address] [place], [address] WBC (Bld) [#/Vol] 5.2 10*3/uL Normal 4.4-11.0 [facility] Comment on above: Performed By: #### M 100.2200, L509.4006, L3890.6006, L3890.6102, L100.0100, BTS, L509.8002, L3890.6301 #### [facility] [address] [place], [address] Cervical or vagninal specime n microscopic examination by cytology stain (reported asOrdered By: Rosaline Hansen on 03-04-2025 Cytology report Cyto stain Doc (Cvx/Vag) Comment . [facility] Comment on above: The Pap [...] rRNA RICK+probe Ql (Unsp spec) Negative Negative [facility] Eosinophil percentageOrdered By: Rosaline Hansen on 03-04-2025 Eosinophils/100 WBC (Bld) 1.0 % 0-5 [facility] Erythrocyte distribution wid th ratioOrdered By: Rosaline Hansen on 03-04-2025 Erythrocyte distribution width (RBC) [Ratio] 11.8 % 11.6-14.6 [facility] Erythrocyte distribution wid th standard deviationOrdered By: Rosaline Hansen on 03-04-2025 Erythrocyte distribution width (RBC) [Ratio] 37.6 fl 35.1-43.9 [facility] HIVon 03-04-2025 HIV Non-Reactive Normal Nonreactive [facility] Comment on above: Result Comment: Non- Reactive Reactive Repeatedly reactive samples must be confirmed according to CDC recommended confirmatory algorithms. The subresults for either HIVAG or AHIV can be used as an aid in the selection of the confirmation algorithm for reactive samples. Send out specimens with Reactive results to [facility] for confirmation. Order the HIV antibody detection and differentiation: lc#[id number] Performed By: #### M 100.2200, L509.4006, L3890.6006, L3890.6102, L100.0100, BTS, L509.8002, L3890.6301 ####[facility] [address] [place], [place], [address] Hematocrit Auto (Bld) [Volum e fraction]Ordered By: Rosaline Hansen on 03-04-2025 Hematocrit (Bld) [Volume fraction] 40.9 % 37-47 [facility] Hemoglobin measurementOrdere d By: Rosaline Davidsonhima on 03-04-2025 Hemoglobin (Bld) [Mass/Vol] 14.0 g/dL 12.0-15.0 [facility] Hepatitis C Antibodyon 03-04 Hepatitis C Ab Non-Reactive Normal Nonreactive [facility] Comment on above: Result Comment: Reac tive: Presumptive evidence of antibodies to HCV. Follow CDC recommendations for supplemental testing. Non-Reactive: Antibodies to HCV were not detected; does not exclude the possibility of exposure to HCV Reactive Results are presumptive evidence of antibodies to HCV. Follow CDC recommendations for supplemental testing. Order confirmation testing: HCV Quant by PCR testing - HCVPCR lc#[id number] Non Reactive: < 0.8 Equivocal: >/= 0.8 to < 1.0 Reactive: >/= 1.0 The CDC requires that a reactive/equivocal HCV antibody result be sent out for confirmation. HCV Quant by PCR testing. Performed By: #### M 100.2200, L509.4006, L3890.6006, L3890.6102, L100.0100, BTS, L509.8002, L3890.6301 ####[facility] [address] [place], [place], [address] Immature granulocytes/100 WB C Auto (Bld)Ordered By: Rosaline Hansen on 03-04-2025 Immature granulocytes/100 WBC (Bld) 0.200 % 0.0-0.9 [facility] Comment on above: IG% - Immature Granu locytes (promyelocytes, myelocytes and metamyelocytes) > 1% indicates that a LEFT SHIFT is Present. L3890.6102on 03-04-2025 HEP B Surf Ag Non-Reactive Normal Nonreactive [facility] Comment on above: Result Comment: Reac tive: Presumptive evidence of HBV. Repeatedly reactive samples must be confirmed using a neutralization test ([employer] HBsAg Confirmatory Test) Non-Reactive: HBsAg not detected; does not exclude the possibility of exposure to HBV Performed By: #### M 100.2200, L509.4006, L3890.6006, L3890.6102, L100.0100, BTS, L509.8002, L3890.6301 ####[facility] [address] [place], [address] L509.4006on 03-04-2025 Rubella IgG REAC Normal Nonreactive [facility] Comment on above: Result Comment: Anti body Result: Interpretation Non-Reactive: Non-Immune Reactive: Immune The following results were obtained with the [employer] Rubella IgG assay. Results from assays of other manufacturers cannot be used interchangeably. Performed By: #### M 100.2200, L509.4006, L3890.6006, L3890.6102, L100.0100, BTS, L509.8002, L3890.6301 #### [facility] [address] [place], [place], [address] Laboratory - CytologyOrdered By: Rosaline Hansen on 03-04-2025 Inspector Repairer [place]stone Cyto stain Nom (Cvx/Vag) [ID] Comment . [facility] Comment on above: Kate Roldan, Cyto logist (ASCP) Laboratory - Microbiology an d Antimicrobial susceptibilityOrdered By: Rosaline Hansen on 03-04-2025 HBV surface Ag Ql (S) Non-Reactive Nonreactive [facility] Comment on above: Reactive: Presumptiv e evidence of HBV. Repeatedly reactive samples must be confirmed using a neutralization test ([employer] HBsAg Confirmatory Test)Non-Reactive: HBsAg not detected; does not exclude the possibility of exposure to HBV Laboratory - Miscellaneous t estsOrdered By: Rosaline Hansen on 03-04-2025 Service comment (Unsp spec) [Interp] . . [facility] MCV (mean corpuscular volume ) determinationOrdered By: Roasline Hansen on 03-04-2025 MCV (RBC) [Entitic vol] 88.9 fL 81-99 [facility] Mean corpuscular hemoglobin (MCH) determinationOrdered By: Rosaline Hansen on 03-04-2025 MCH (RBC) [Entitic mass] 30.4 pg 27.0-32.0 [facility] Mean corpuscular hemoglobin concentration (MCHC) determinationOrdered By: Rosaline Hansen on 03-04-2025 MCHC (RBC) [Mass/Vol] 34.2 g/dL 32-36 [facility] Mean platelet volume determi nationOrdered By: Rosaline Hansen on 03-04-2025 Platelet mean volume (Bld) [Entitic vol] 10.3 fL 6.2-12.0 [facility] Monocyte percentageOrdered B y: Rosaline Hansen on 03-04-2025 Monocytes/100 WBC (Bld) 4.8 % 0-10 [facility] NATERAon 03-04-2025 NATURA SEE SCANNED REPORT Normal [facility] Comment on above: Performed By: #### L 900.0098 #### [facility] [address] [place], [address] Neisseria gonorrhoeae nuclei c acid detection by amplified probe techniqueOrdered By: Rosaline Hansen on 03-04-2025 N. gonorrhoeae DNA RICK+probe Ql (Unsp spec) Negative Negative [facility] Comment on above: Performed at: = - [address] [place] [id number] Director: Milagros Roque MD, Phone: [phone] Neutrophil percentageOrdered By: Rosaline Hansen on 03-04-2025 Neutrophils/100 WBC (Bld) 68.6 % 47-70 [facility] No Panel InformationOrdered By: Rosaline Hansen on 03-04-2025 Pap Smear Specimen Adequacy Comment . [facility] Comment on above: Satisfactory for isa luation. No endocervical component is identified.An endocervical component is not commonly seen in the patient. HIV (1&2) Antibody Non-Reactive Nonreactive [facility] Comment on above: Non-ReactiveReactive Repeatedly reactive samples must be confirmed according to CDC recommended confirmatory algorithms. The subresults for either HIVAG or AHIV can be used as an aid in the selection of the confirmation algorithm for reactive samples.Send out specimens with Reactive results to [facility] for confirmation.Order the HIV antibody detection and differentiation: #[id number] Nucleated red blood cell per centageOrdered By: Rosaline Hansen on 03-04-2025 Nucleated RBC/100 WBC (Bld) [Ratio] 0 % 0-5 [facility] Ordnance Engineer Office Visit Reporton 03-04-2025 Ordnance Engineer Office Visit Report [facility]'s [address], [address] [place] [address] OFFICE VISIT Date of Service: 03/04/25 MR#: [id number] Acct: [id number] Name: DANIEL HODGSON Rep #: [id number] : 2005 Provider: Dr. Delaney Rosa DO Age/Sex: 20/F [place] [facility] [place]: Signed Intake Vital Signs 06/27/24 21:03 02/26/25 11:42 03/04/25 10:34 Height 5 ft 1 in 5 ft 1 in 5 ft 1 in Weight: 139 lb BMI 26.2 BP 120/80 Intake Visit Reasons: *NEW* NOB LMP 12/14, JENIFER 09/20 Dairy Manufacturing Technologist Required: No Is patient in pain?: No [...] physical activity do you participate in: none mey/latter day: None seatbelt use: always do you feel [...] Recent travel (more content not included)... Normal [facility] Platelet countOrdered By: Shahid Hansen on 03-04-2025 Platelets (Bld) [#/Vol] 254 10*3/uL 150-450 [facility] RBC Auto (Bld) [#/Vol]Ordere d By: Rosaline Hansen on 03-04-2025 RBC (Bld) [#/Vol] 4.60 10*6/uL 4.2-5.4 [facility] Syphilis Antibodieson 2024 Syphilis Abs Non-Reactive Normal Nonreactive [facility] Comment on above: Performed By: #### M 100.2200, L509.4006, L3890.6006, L3890.6102, L100.0100, BTS, L509.8002, L3890.6301 ####[facility] [address] [place], [address] Type AND Screenon 03-04-2025 Ab SCREEN GEL Negative Normal [facility] Comment on above: Order Comment: DECLAN MADRIGAL Performed By: #### M 100.2200, L509.4006, L3890.6006, L3890.6102, L100.0100, BTS, L509.8002, L3890.6301 #### [facility] [address] [place], [place], [id number] Urine cultureOrdered By: Maikel Hansen on 03-04-2025 Bacteria identified Cx Nom (U) Escherichia coli Abnormal [facility] Bacteria identified Cx Nom (U) Escherichia coli Abnormal [facility] White blood cell (WBC) count Ordered By: Rosaline Hansen on 03-04-2025 WBC (Bld) [#/Vol] 5.2 10*3/uL 4.4-11.0 [facility] Office Visit Reporton 2024 Office Visit Report [facility] [place] [address] OFFICE VISIT Date of Service: 02/26/25 MR#: [id number] Acct: [id number] Patient: DANIEL HODGSON Rep #: [id number] : 2005 Provider: Dr. Rosaline moy MD Age/Sex: 20/F [place] [facility] [place]: Signed Intake Vital Signs 06/27/24 21:03 [...] No 02/26/25 1657 Date Rosaline Hansen MD [facility] Signature: Date (if applicable) CC: Normal [facility] Emergency Department Summary on 06-27-2024 Emergency Department Summary [facility] Medical Records Department [address] [place] [address] Emergency Department Summary 06/27/24 MR#: [id number] Acct: [id number] Name: DANIEL HODGSON Rep #: [id number] : 2005 19 From: Wayne Nice [...] Social History Smoking Status: Never smoker ROS [facility] ED Constitutional Constitutional ED: Denies chills, [...] marked for (more content not included)... Normal [facility] CNOVon 06-06-2023 CNOV Office Visit (UCWSTR) ---- DANIEL HODGSON ([id number]) 3 F Date Time Provider Department 06/06/23 [...] NAAT, UPPER RESPIRATORY, ROUTINE [SQCOVID] Order #: [id number]. #:[id number] benzonatate (TESSALON PERLE) 100 mg capsuleTake 1 [...] Status:Closed by LUIS FOSTER on 06/06/23 Normal [facility] SARS-CoV-2 RNA Resp Ql RICK+p beata 06-06-2023 SARS-CoV-2 (COVID-19) RNA RICK+probe Ql (Resp) COVID 19 RESULT: Not detected The method used is RT-PCR or an equivalent NAAT method. Reference Range (the expected result in uninfected individuals): Not detected Normal [facility] Comment on above: Performed By: #### 9 [id number] #### [facility] CLIA [id number] [address] [place] [address] [place] Ambreen 12-21-2022 CNPN Telephone (PEDSWS) ---- DANIEL HODGSON ([id number]) 3 F Date Time Provider Department 12/21/22 JOSÉ MIGUEL OSORIO During your visit today, we recorded the following information about you: Odilon Muir 12/21/2022 12:50 PM Signed Patients mother is needing medical records printed. Please call [phone] when ready, she will sign release when she comes to pick them up in [facility]'s main lobby Bharati Loza RN 12/21/2022 1:19 [...] Of Date: 12/21/2022 (None) Encounter Status:Closed by HBARATI LOZA RN on 12/21/22 Normal [facility] Vital Signs Date Time Vital Sign Value Performing Clinician Vincenzoi danielle 05-28-2025 11:27-0400 Body height 154.[address] José Miguel Osorio MD Work Phone: [facility] 05-28-2025 11:26-0400 Body mass index (BMI) [Ratio] 26.7 kg/m2 Dr. Jsoé Miguel Osorio MD Work Phone: [facility] 05-28-2025 11:26-0400 Body weight 64.[address] José Miguel Osorio MD Work Phone: [facility] 05-28-2025 11:26-0400 Diastolic blood pressure 75 mm[Hg] Dr. José Miguel Osorio MD Work Phone: [facility] 05-28-2025 11:26-0400 Systolic blood pressure 117 mm[Hg] Dr. José Miguel Osorio MD Work Phone: [facility] 04-30-2025 09:41-0400 Body height 154.[address] José Miguel Osorio MD Work Phone: [facility] 04-30-2025 09:41-0400 Body mass index (BMI) [Ratio] 26.7 kg/m2 Dr. José Miguel Osorio MD Work Phone: 8(262)983-402008 [place] [address] 04-30-2025 09:41-0400 Body weight 64.[address] José Miguel Osorio MD Work Phone: 5(696)229-754608 [place] [address] 04-30-2025 09:41-0400 Diastolic blood pressure 76 mm[Hg] Dr. José Miguel Osorio MD Work Phone: 9(659)941-630308 [place] [address] 04-30-2025 09:41-0400 Systolic blood pressure 118 mm[Hg] Dr. José Miguel Osorio MD Work Phone: 4(369)792-691208 [place] [address] 04-03-2025 16:01-0400 Body height 154.[address] José Miguel Osorio MD Work Phone: 1(402)247-538908 [place] [address] 04-03-2025 16:01-0400 Body mass index (BMI) [Ratio] 26.9 kg/m2 Dr. José Miguel Osorio MD Work Phone: 8(586)688-125008 [place] [address] 04-03-2025 16:01-0400 Body weight 64.[address] José Miguel Osorio MD Work Phone: 9(478)557-915508 [place] [address] 04-03-2025 16:01-0400 Diastolic blood pressure 55 mm[Hg] Dr. José Miguel Osorio MD Work Phone: 1(295)331-275508 [place] [address] 04-03-2025 16:01-0400 Systolic blood pressure 104 mm[Hg] Dr. José Miguel Osorio MD Work Phone: 3(175)866-668108 [place] [address] 03-04-2025 10:34-0400 Body height 154.[address] José Miguel Osorio MD Work Phone: 0(494)026-230808 [place] [address] 03-04-2025 10:34-0400 Body mass index (BMI) [Ratio] 26.2 kg/m2 Dr. José Miguel Osorio MD Work Phone: 9(134)847-411808 [place] [address] 03-04-2025 10:34-0400 Body weight 63.[address] José Miguel Osorio MD Work Phone: 0(110)734-199008 [place] [address] 03-04-2025 10:34-0400 Diastolic blood pressure 80 mm[Hg] Dr. José Miguel Osorio MD Work Phone: 3(275)657-412978 [place] [address] 03-04-2025 10:34-0400 Systolic blood pressure 120 mm[Hg] Dr. José Miguel Osorio MD Work Phone: 3(215)936-606908 [place] [address] 02-26-2025 11:42-0400 Body mass index (BMI) [Ratio] 26.4 kg/m2 Dr. José Miguel Osorio MD Work Phone: 2(318)746-545608 [place] [address] 02-26-2025 11:42-0400 Body weight 63.[address] José Miguel Osorio MD Work Phone: 7(222)016-694108 [place] [address] 02-26-2025 11:42-0400 Diastolic blood pressure 60 mm[Hg] Dr. José Miguel Osorio MD Work Phone: 5(984)245-852808 [place] [address] 02-26-2025 11:42-0400 Systolic blood pressure 112 mm[Hg] Dr. José Miguel Osorio MD Work Phone: 0(770)216-410078 [place] [address] 06-06-2023 10:21-0400 Body temperature 98.2 [degF] Luis Foster MD Work Phone: 6(977)727-605680 [place] [address] 06-06-2023 10:21-0400 Body weight 71.22 kg Luis Foster MD Work Phone: 9(163)568-446680 [place] [address] 06-06-2023 10:21-0400 Diastolic blood pressure 72 mm[Hg] Luis Foster MD Work Phone: [facility] 06-06-2023 10:21-0400 Heart rate 108 /min Luis Foster MD Work Phone: [facility] 06-06-2023 10:21-0400 Respiratory rate 18 /min Luis Foster MD Work Phone: [facility] 06-06-2023 10:21-0400 SaO2% (BldA) [Mass fraction] 99 % Luis Foster MD Work Phone: [facility] 06-06-2023 10:21-0400 Systolic blood pressure 120 mm[Hg] Luis Foster MD Work Phone: [facility] Encounters Encounter Date Encounter Type Care Provider Facility Start: 06-21-2025 ambulatory Rosaline Lira lity:[facility] Start: 05-28-2025 End: 05-28-[address] Delaney Cordova DO -[facility] Work Phone: Start: 05-28-2025 End: 05-28-[address] José Miguel Osorio MD Work Phone: [facility] Start: 05-21-2025 End: 05-21-2025 ambulatory JOSÉ MIGUEL OSORIO [facility] Start: 05-06-2025 End: 05-06-2025 ambulatory BENTONVICKI Guevara [facility] Start: 04-30-2025 End: 04-30-[address] José Miguel Osorio MD Work Phone: -[facility] Start: 04-30-2025 End: 04-30-[address] Delaney Cordova DO -[facility] Work Phone: Start: 04-30-2025 End: 04-30-2025 Patient encounter procedure Mary Ellen KELLEY -[facility] Work Phone: Start: 04-30-2025 End: 04-30-[address] José Miguel Osorio MD Work Phone: [facility] Start: 04-30-2025 End: 04-30-2025 ambulatory José Miguel Osorio Facility:[facility] Start: 04-03-2025 End: 04-03-[address] Delaney Cordova DO -[facility] Work Phone: Start: 04-03-2025 End: 04-03-[address] José Miguel Osorio MD Work Phone: [facility] Start: 03-04-2025 End: 03-04-[address] Delaney Cordova DO -[facility] Work Phone: Start: 03-04-2025 End: 03-04-[address] José Miguel Osorio MD Work Phone: -[facility] Start: 03-04-2025 End: 03-04-2025 [facility] Start: 02-26-2025 End: 02-26-[address] Rosaline Hansen MD -[facility] Work Phone: Start: 02-26-2025 End: 02-26-[address] José Miguel Osorio MD Work Phone: -[facility] Start: 06-27-2024 End: 06-27-2024 Emergency department [facility] Facility:[facility] Start: 06-06-2023 End: 06-06-2023 ambulatory [facility] Facility:[facility] Start: 06-06-2023 End: 06-06-2023 Patient encounter procedure Luis Foster MD Work Phone: [facility] Comment on above: Acute cough (Primary [...] therefore, no HPV testing was performed.Performed at: [facility] [id number] [place], [place] [id number] Director: Mynor Steele MD, Phone: [phone] at: - [place] [id number] Director: Milagros Roque MD, Phone: [phone] Start: 03-04-[address] Rupa Osorio [...] HCV Quant by PCR testing - HCVPCR lc#[id number] Non Reactive: < 0.8 Equivocal: >/= 0.8 [...] ImmuneThe following results were obtained with the [employer] Rubella IgG assay. Results from assays of other manufacturers cannot be used interchangeably. Start: 03-04-2025 Serologic test for syphilis Dr. José Miguel Osorio MD Work Phone: Plan of Treatment Date Care Activity Detail Author Start: 09-12-2027 Urine microalbumin profile DTaP,Tdap,Td Vaccine (5 - Td or Tdap) [facility] Start: 05-28-2025 Measurement of glucose 2 hours after glucose challenge for glucose tolerance test [facility] Start: 05-28-2025 Serologic test for syphilis [facility] Start: 05-28-2025 [facility] Start: 03-04-2025 Bacteria identified in Urine by Culture Urine Culture [facility] Start: 03-04-2025 CBC W Auto Differential panel - Blood [facility] Start: 03-04-2025 Hepatitis C antibody measurement [facility] Start: 03-04-2025 Rubella IgG measurement [facility] Start: 03-04-2025 Serologic test for syphilis [facility] Start: 03-04-2025 [facility] Start: 03-04-2025 Procedure [facility] Start: 04-08-2023 Influenza vaccination [facility] Start: 08-08-2022 Depression Assessment Depression Assessment [facility] Start: 02-14-2022 Chlamydia Screening (18-24) Chlamydia Screening (18-24) [facility] Start: 02-14-2022 GC (Gonorrhea) Screening (18-24) GC (Gonorrhea) Screening (18-24) [facility] Start: 02-14-2022 Hepatitis C Screening Hepatitis C Screening [facility] Start: 02-14-2022 HIV Screening HIV Screening [facility] Start: 2020 Meningococcal B Vaccine: Consider Based On Risk (1 of 2 - Patient Seeks Protection) Meningococcal B Vaccine: Consider Based On Risk (1 of 2 - Patient Seeks Protection) [facility] Start: 02-14-2018 Peds To Adult Transition Annual Assessment Peds To Adult Transition Annual Assessment [facility] Start: 2004 Covid-19 Vaccine (#1) Covid-19 Vaccine (#1) [facility] CBC W Auto Different ial panel - Blood [facility] Chlamydia deoxyribon ucleic acid detection [facility] Erythrocyte mean corpuscular volume determination [facility] Hematocrit [Volume Fraction] of Blood [facility] Hemoglobin [Mass/vol ume] in Blood [facility] Hepatitis B virus mccall rface Ag [Presence] in Serum [facility] Leukocytes [#/volume ] in Blood [facility] Liquid based cervica l cytology screening [facility] Mean corpuscular hem oglobin concentration determination [facility] Mean corpuscular hem oglobin determination [facility] Neutrophil count [facility] Neutrophil percent differential count [facility] Platelets [#/volume] in Blood [facility] Red blood cell count [facility] Red cell distributio n width determination [facility] SARS-CoV-2 (COVID-19 ) RNA [Presence] in Respiratory specimen by RICK with probe detection COVID NAAT, UPPER RESPIRATORY, ROUTINE Microbiology Routine Acute cough 06/06/2023 11:42 AM EDT [facility] Work Phone: Urine culture [facility] Immunizations Immunization Date Immunization Notes Care Provider Brian martin 05-22-2021 Human Papillomavirus 9-valent vaccine Luis Foster MD Work Phone: [facility] 05-22-2021 meningococcal polysaccharide (groups A, C, Y and W-135) diphtheria toxoid conjugate vaccine (MCV4P) Luis Foster MD Work Phone: [facility] 09-12-2017 Human Papillomavirus 9-valent vaccine Luis Foster MD Work Phone: [facility] 09-12-2017 influenza, injectabl e, quadrivalent, contains preservative Luis Foster MD Work Phone: [facility] 09-12-2017 meningococcal polysaccharide (groups A, C, Y and W-135) diphtheria toxoid conjugate vaccine (MCV4P) Luis Foster MD Work Phone: [facility] 09-12-2017 tetanus toxoid, redu varun diphtheria toxoid, and acellular pertussis vaccine, adsorbed Luis Foster MD Work Phone: [facility] 09-12-2017 influenza virus vacc ine, unspecified formulation Luis Foster MD Work Phone: [facility] 07-19-2007 diphtheria, tetanus toxoids and acellular pertussis vaccine Luis Foster MD Work Phone: [facility] 07-19-2007 diphtheria, tetanus toxoids and acellular pertussis vaccine, unspecified formulation Luis Foster MD Work Phone: [facility] 07-19-2007 influenza virus vacc ine, unspecified formulation Luis Foster MD Work Phone: [facility] 07-19-2007 influenza virus vacc ine, whole virus Luis Foster MD Work Phone: [facility] 07-19-2007 pneumococcal conjuga te vaccine, 7 valent Luis Foster MD Work Phone: [facility] 07-19-2007 poliovirus vaccine, inactivated Luis Foster MD Work Phone: [facility] 04-27-2007 diphtheria, tetanus toxoids and acellular pertussis vaccine Luis Foster MD Work Phone: [facility] 04-27-2007 DTaP-hepatitis B and poliovirus vaccine Luis Foster MD Work Phone: [facility] 04-27-2007 hepatitis B vaccine, pediatric or pediatric/adolescent dosage Luis Foster MD Work Phone: [facility] 04-27-2007 poliovirus vaccine, inactivated Luis Foster MD Work Phone: [facility] 10-21-2005 diphtheria, tetanus toxoids and acellular pertussis vaccine Luis Foster MD Work Phone: [facility] 10-21-2005 DTaP-hepatitis B and poliovirus vaccine Luis Foster MD Work Phone: [facility] 10-21-2005 haemophilus influenz ae type b vaccine, conjugate unspecified formulation Luis Foster MD Work Phone: [facility] 10-21-2005 hepatitis B vaccine, pediatric or pediatric/adolescent dosage Luis Foster MD Work Phone: [facility] 10-21-2005 measles, mumps and rubella virus vaccine uLis Foster MD Work Phone: [facility] 10-21-2005 pneumococcal conjuga te vaccine, 7 valent Luis Foster MD Work Phone: [facility] 10-21-2005 poliovirus vaccine, inactivated Luis Foster MD Work Phone: [facility] 10-21-2005 varicella virus vaccine Omid Foster MD Work Phone: [facility] 2004 hepatitis B vaccine, pediatric or pediatric/adolescent dosage Luis Foster MD Work Phone: [facility] Payers Date Payer Category Payer Self-pay 2024 Unknown [id number] 2022 Medicaid [place] [employer] [facility] MEDICAID [id number] 2022-Present [phone] [address] [place] [address] Medicaid [id number] 2014 Medicaid [id number] 2004 Unknown [id number] 2004 Unknown [id number] Unknown [id number] Unknown [id number] Unknown [id number] Unknown [id number] Unknown [id number] Unknown [id number] Unknown [id number] Unknown [id number] Unknown [id number] Social History Date Type Detail Facility Start: 10-15-2013 End: 02-26-2025 Tobacco smoking status NHIS Never smoked tobacco [facility] Start: 10-15-2013 Tobacco use and exposure Smoke less tobacco non-user [facility] Start: 06-06-2023 Alcohol intake Not Asked Gabriele young [facility] Start: 04-15-2021 End: 06-06-2023 [facility] Start: 04-15-2021 End: 06-06-2023 Tobacco use panel [facility] How hard is it for y ou to pay for the very basics like food, housing, medical care, and heating Not very hard [facility] (I/We) worried daniel er (my/our) food would run out before (I/we) got money to buy more. Never true [facility] In the past 12 month s, has lack of transportation kept you from medical appointments or from getting medications? No [facility] In the past 12 month s, was there a time when you were not able to pay the mortgage or rent on time? No [facility] Start: 2005 Sex Assigned At Female [facility] Start: 06-06-2023 Gender identity Identifies as female gender (finding) [facility] Clinical Notes 06-06-2023 to 05-28-2025 Note Date & Type Note Facility 05-28-2025 Progress note [facility] 04-30-2025 Progress note [facility] 04-03-2025 Progress note [facility] 04-03-2025 Progress note Note Date/Time April 03, 2025 4:39pm [facility] [address], [address] [place] [address] OFFICE VISIT Date of Service: 04/03/25 MR#: [id number] Acct: [id number] Name: DANIEL HODGSON ep #: [id number] : 2005 Provider: Dr. Sarah Cordova DO Age/Sex: 20/F [place] [facility] [place]: Signed Intake Vital Signs 06/27/24 21:03 03/04/25 10:34 04/03/25 16:01 Height 5 ft 1 in 5 ft 1 in 5 ft 1 in Weight: 142 lb 9 oz BMI 26.9 BP 104/55 L Intake Visit Reasons: 15wk OB Dairy Manufacturing Technologist Required: No Is patient in pain?: No [...] physical activity do you participate in: none mey/latter day: None seatbelt use: always do you feel [...] t with LMP, had early us with [facility]. desires NIPT without carrier testing. [...] Foote DO> Date _ Delaney Cordova DO [facility] Signature: Date (if applicable) CC: ~ [facility] Work Phone: 1(549) 774-290907-28-2025 Progress [facility] [address] [place] [address], [address] [place] [id number] OFFICE VISIT Date of Service: 03/04/25 MR#: [id number] Acct: [id number] Name: DANIEL HODGSON ep #: [id number] : 2005 Provider: Dr. Sarah Cordova DO Age/Sex: 20/F [place] [facility] [place]: Signed Intake Vital Signs 06/27/24 21:03 02/26/25 11:42 03/04/25 10:34 Height 5 ft 1 in 5 ft 1 in 5 ft 1 in Weight: 139 lb BMI 26.2 BP 120/80 Intake Visit Reasons: *NEW* NOB LMP 12/14, JENIFER 09/20 Dairy Manufacturing Technologist Required: No Is patient in pain?: No [...] physical activity do you participate in: none mey/latter day: None seatbelt use: always do you feel [...] t with LMP, had early us with [facility]. desires NIPT without carrier testing. [...] Pulmonary (e.g.,TB,Asthma), Seasonal allergies, Drug/latex allergies/reactions, Breast, Canteen Manager surgery, Operations/hospitalizations, Anesthetic complications, History of abnormal [...] and full ROM Supplemental Info [facility] book given and patient encouraged to read [...] discussed care expectations and screenings. [facility] book offered to patient. Discussed routine and [...] Velde DO> Date _ Del[facility] Signature: Date (if applicable) CC: ~ [facility]07-22-2025 Chief complaint+Reason for visit Narrative* Chief [...] 10:3 1am Supervision of normal February 10:31am [facility] Work Phone: 1([phone]) [phone] Chief complaint+Reason for visit Narrative * Chief [...] UTI in April 03, 2025 3: 49pm [facility] Work Phone: 1(301) 118-633807-22-2025 Chief complaint+Reason for visit Narrative * Chief [...] April 30, 2025 9:37am [facility] 9:37am UTI in April 30, 2025 9:37am [facility] Work Phone: 1(129) 373-954607-22-2025 Chief complaint+Reason for visit Narrative * Chief [...] UTI in May 28, 2025 1 1:24am [facility] Work Phone: 1(362) [phone] Evaluation note* Diagnosis Onset Date Resolution Status Admit Date 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 acute February 26, 2025 10:51am acute February 26 10:51am Supervision of normal acut e February 26, 2025 10:51am 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 acute March 04, 2025 10:31am acute March 04 10:31am Supervision of normal acut e March 04, 2025 10:31am [facility] Work Phone: 1(728) 322-870707-22-2025 Evaluation note* Diagnosis Onset Date Resolution Status [...] 3:49pm UTI in acute March 092024 3:49pm [facility] Work Phone: 1(313) 867-788207-22-2025 Evaluation note* Diagnosis Onset Date Resolution Status [...] 2025 9:37am UTI in acute 2024 9:37am [facility] Work Phone: 1([phone]) 381-917007-22-2025 Evaluation note* Diagnosis Onset Date Resolution Status [...] UTI in acute May 28, 2025 11:24am [facility] Work Phone: 1(514) 940-459810-30-2023 NoteHNO ID: [id number] Author: Luis Foster MD Service: ? Author [...] - BENZONATATE 100 MG CAPSULE Luis Foster [facility]10-30-2023 History of Present illness Narrative* Luis Foster [...] CAPSULE Luis Foster MD [facility] complaint+Reason for visit Narrative* Chief Complaint Admit Date PNOB Vitals, Education February 26, 2025 1 0:51am [facility] Work Phone: Evaluation note* Diagnosis Acute cough- Primary documented in this encounter [facility] noteNo assessment information availableBlCHoNC Pediatric [facility] Work Phone: Progress note Author Delaney Moreno [facility] Note Date/Time March 04, 2025 11:1 1am [facility] [address], [address] [place] [address] OFFICE VISIT Date of Service: 03/04/25 MR#: [id number] Acct: [id number] Name: DANIEL HODGSON ep #: [id number] : 2005 Provider: Dr. Sarah Cordova DO Age/Sex: 20/F [place] [facility] [place]: Signed Intake Vital Signs 06/27/24 21:03 02/26/25 11:42 03/04/25 10:34 Height 5 ft 1 in 5 ft 1 in 5 ft 1 in Weight: 139 lb BMI 26.2 BP 120/80 Intake Visit Reasons: *NEW* NOB LMP 12/14, JENIFER 09/20 Dairy Manufacturing Technologist Required: No Is patient in pain?: No [...] physical activity do you participate in: none mey/latter day: None seatbelt use: always do you feel [...] t with LMP, had early us with [facility]. desires NIPT without carrier testing. Menstrual History [...] Pulmonary (e.g.,TB,Asthma), Seasonal allergies, Drug/latex allergies/reactions, Breast, Canteen Manager surgery, Operations/hospitalizations, Anesthetic complications, History of abnormal [...] comfortable and no acute distress Orientation: [facility] [facility] Head: normal to inspection, normocephalic and atraumatic [...] Cosigner Signature: Date (if applicable) CC: ~ [facility] Work Phone: Progress note Author Mary Ellen Cortez [facility] Note Date/Time April 30, 2025 9:54am [facility] [address] [place] [address], [address] [place] [address] OFFICE VISIT Date of Service: 04/30/25 MR#: [id number] Acct: [id number] Name: DANIEL HODGSON ep #: [id number] : 2005 Provider: CAROLE Toro Age/Sex: 20/F [place] [facility] [place]: Signed Intake Vital Signs 06/27/24 21:03 04/03/25 16:01 04/30/25 09:41 Height 5 ft 1 in 5 ft 1 in 5 ft 1 in Weight: 141 lb 7 oz BMI 26.7 BP 118/76 Intake Visit Reasons: 19wk OB Chief Complaint: 19wk OB Dairy Manufacturing Technologist Required: No Is patient in pain?: No [...] physical activity do you participate in: none mey/latter day: None seatbelt use: always do you feel [...] t with LMP, had early us with [facility]. desires NIPT without carrier testing. [...] this visit. [place] appropriate handout given. 04/30/25 0082 <Electronically signed by Mary Ellen toussaint CNM> Date _ Mary Ellen Toro CNM Cosigner Signature: Date (if applicable) CC: ~ [facility] Work Phone: Progress note Author Delaney Moreno [facility] Note Date/Time May 28, 2025 1 2:44pm [facility] [address] [place] [address], [address] [place] [address] OFFICE VISIT Date of Service: 05/28/25 MR#: [id number] Acct: [id number] Name: DANIEL HODGSON MYA fonseca #: [id number] : 2005 Provider: Dr. Sarah Cordova DO Age/Sex: 20/F [place] [facility] [place]: Signed Intake Vital Signs 03/04/25 10:34 04/30/25 09:41 05/28/25 11:26 05/28/25 11:27 Height 5 ft 1 in 5 ft 1 in 5 ft 1 in 5 ft 1 in Weight: 141 lb 9 oz BMI 26.7 BP 117/75 Intake Visit Reasons: 23w 4d ob Dairy Manufacturing Technologist Required: No Is patient in pain?: No [...] physical activity do you participate in: none mey/latter day: None seatbelt use: always do you feel [...] t with LMP, had early us with [facility]. desires NIPT without carrier testing. 04/03/25 -?-?-?-?-?-?-?-?-?-?-?-?- [...] Cosigner Signature: Date (if applicable) CC: ~ [facility] Work Phone: Reason for referral (narrative)No reason for referral information available[facility] Work Phone: Summary Purpose Family History [...] or prosecute any alcohol or drug abuse patient.[facility] Reason for Visit (unrecogniz ed section and content) Reason Comments Sinus Problem sinus pressure, drai nage, cough x 3 days Care Teams (unrecognized sec tion and content) [employer] T[employer] Relationship Specialty Start Date End Date José Miguel Osorio MD [address] [place] [address] PCP - General Pediatrics 06/28/11 Team Status: [...] section and content) DATE CREATED AUTHOR 06/07/2023 [facility] DATE CREATED AUTHOR AUTHOR'S ORGANIZ ATION 05/22/2025 [facility] DATE CREATED AUTHOR AUTHOR'S ORGANIZ ATION 06/19/2025 [facility] Goals (unrecognized section and content) Type [...] BE BASED ON THE PRIMARY CLINICAL RECORDS. [facility] [employer] [facility]. provides no warranty or guarantee of the accuracy or completeness of information in this document.
[2025-06-25 00:16] VITALS: RESP 16; TEMP 36.4
[2025-06-25 00:17] VITALS: BP 121/63; PULSE 98
[2025-06-25 00:30] LABS: Color, Urine Straw (Yellow); Glucose, Dipstick Normal (Normal); Ketone-Dipstick Negative (Negative); Leukocyte Esterase-Dipstick Negative /ul (Negative); Nitrite-Dipstick Negative (Negative); Occult Blood-Urine Negative /ul (Negative); Protein-Dipstick Negative (Negative); Specific Gravity, Urine 1.015 (1.002-1.030); Urine Bilirubin Dipstick Negative (Negative)
[2025-06-25] MEDS: Lactated Ringers 1,000 ML 999 ML IV (00:50)
[2025-06-25 01:02] LABS: Hematocrit 34.5 % (37-47); Hemoglobin 11.7 g/dL (12.0-15.0); Immature Granulocytes Count 0.030 X10^3/uL (0.0-0.0); Mean Corp Hgb Conc 33.9 g/dL (32-36); Mean Corpuscular Volume 92.2 fL (81-99); Mean Platelet Vol. 10.2 fl (6.2-12.0); NRBC Flagged by Analyzer 0 % (0-5); Platelet Count 231 K/mm3 (150-450); RBC Distribution Width CV 12.2 % (11.6-14.6); RBC Distribution Width SD 40.9 fl (35.1-43.9); Red Blood Count 3.74 M/mm3 (4.2-5.4); White Blood Count 8.0 K/mm3 (4.4-11.0)
[2025-06-25 01:25] LABS: AST(SGOT) 16 U/L (<=31); Alanine Aminotransfer ALT/SGPT 11 U/L (<=34); Albumin, Serum 3.6 g/dL (3.5-5.0); Alkaline Phosphatase 116 U/L (35-104); Anion Gap 10 (5-15); BUN 5 mg/dL (4-19); BUN/Creat Ratio 9.5 RATIO (10-20); Calcium,Total 9.8 mg/dL (7.6-11.0); Carbon Dioxide 22.9 mmol/L (21.0-32.0); Chloride 105 mmol/L (98-108); Estimated Creatinine Clearance 140.59 ml/min (50-250); Globulin 3.1 g/dL (2.2-4.2); Glucose 114 mg/dL (70-99); Lipase 16 U/L (13-75); Potassium 4.2 mmol/L (3.3-5.1)
--- NOTE | 2025-06-30 10:14 | OB.TRI.PN ---
Progress Notes Date of Service: 06/24/25 Progress Note: Patient presents for triage evaluation secondary to abdominal pain FHT: 140 Moderate variability reactive no decelerations category I tracing [place]: no regular Contractions Assessment and plan: 27 weeks abdominal pain lab workup negative, symptoms improved with oral refluex treatment Reactive NST, reassuring maternal and status patient discharged to home to follow-up as tamar. See problem list details for additional plan information. Laboratory Studies: Laboratory Tests 06/25/25 06/25/25 Range/Units 00:45 00:10 WBC 8.0 (4.4-11.0) K/mm3 RBC 3.74 L (4.2-5.4) M/mm3 Hgb 11.7 L (12.0-15.0) g/dL Hct 34.5 L (37-47) % MCV 92.2 (81-99) fL MCH 31.3 (27.0-32.0) pg MCHC 33.9 (32-36) g/dL RDW Std Deviation 40.9 (35.1-43.9) fl RDW Coeff of Brigid 12.2 (11.6-14.6) % Plt Count 231 (150-450) K/mm3 MPV 10.2 (6.2-12.0) fl Immature Gran % (Auto) 0.400 (0.0-0.9) % Neut % (Auto) 72.2 H (47-70) % Lymph % (Auto) 20.9 (19-41) % [place] % (Auto) 5.7 (0-10) % Eos % (Auto) 0.5 (0-5) % Baso % (Auto) 0.3 (0-1) % Absolute Neuts (auto) 5.8 (2.0-7.7) X10^3/uL Absolute Lymphs (auto) 1.66 (0.83-4.51) X10^3/uL Nucleated RBC % 0 (0-5) % Sodium 138 (133-145) mmol/L Potassium 4.2 (3.3-5.1) mmol/L Chloride 105 (98-108) mmol/L Carbon Dioxide 22.9 (21.0-32.0) mmol/L Anion Gap 10 (5-15) BUN 5 (4-19) mg/dL Creatinine 0.55 L (0.70-1.20) mg/dL Estim Creat Clear Calc 140.59 (50-250) ml/min Est GFR (MDRD) Non-Af 134 (>60) BUN/Creatinine Ratio 9.5 L (10-20) RATIO Glucose 114 H (70-99) mg/dL Calcium 9.8 (7.6-11.0) mg/dL Total Bilirubin 0.29 (0.00-1.30) mg/dL AST 16 (<=31) U/L ALT 11 (<=34) U/L Alkaline Phosphatase 116 H (35-104) U/L Total Protein 6.7 (5.9-8.4) g/dL Albumin 3.6 (3.5-5.0) g/dL Globulin 3.1 (2.2-4.2) g/dL Albumin/Globulin Ratio 1.2 (0.9-2.4) RATIO Lipase 16 (13-75) U/L Urine Color Straw (Yellow) Urine Clarity Clear (Clear) Urine pH 8.0 (5.0 - 8.0) Ur Specific [place] 1.015 (1.002-1.030) Urine Protein Negative (Negative) mg/dl Urine Glucose (UA) Normal (Normal) mg/dl Urine Ketones Negative (Negative) mg/dl Urine Occult Blood Negative (Negative) /ul Urine Nitrite Negative (Negative) Urine Bilirubin Negative (Negative) mg/dL Urine Urobilinogen Normal (Normal) mg/dl Ur Leukocyte Esterase Negative (Negative) /ul Charges/Coding Procedures Urinary/Genital [id number]: [id number] non-stress test Interp
== END 2025-06-25 02:14 | disposition home or self-care (01) ==
LOC: WPOUT 23:56 → WP 23:57
PROVIDERS: PCP Pediatrics; Referring Provider Obstetrics & Gynecology; Visit Provider Obstetrics & Gynecology
DX: O99.891 Other specified diseases and conditions complicating pregnancy (principal); R10.9 Unspecified abdominal pain; Z3A.27 27 weeks gestation of pregnancy
CPT/HCPCS: 96360; 36415; 59050; 80053; 81002; 83690; 85025; 87086; 87088; 99221; G0378